=== PATIENT | male | born 1945 | race Caucasian/White ===

== ENCOUNTER → 2016-07-08 | Outpatient (CLI) | payer MEDICARE ==
[2016-07-08 10:13] LABS: Basophils % (A) 0 %; CH 33.4; CHCM 33.6; Eosinophils # (A) 0.1 k/uL (0-0.7); Eosinophils % (A) 1 %; HCT 43.6 % (39.0-53.0); HDW 2.28; HGB 14.3 gm/dL (13.0-17.5); Luc % (Auto) 2; Lymphocytes % (A) 14 %; MCH 32.6 pg (25.0-35.0); MCHC 32.7 g/dL (31.0-37.0); MCV 99.7 fL (80.0-100.0); Mean Platelet Volume 7.8; Monocytes # (A) 0.4 k/uL (0-1.0); Monocytes % (A) 6 %; Neutrophils # (A) 5.2 k/uL (1.3-7.7); Neutrophils % (A) 77 %; RBC 4.38 m/uL (4.30-5.90); RDW 12.5 % (11.5-15.5); WBC 6.7 k/uL (3.8-10.6); WBC (Perox) 6.97
[2016-07-08 10:51] LABS: ALT 39 U/L (21-72); AST 26 U/L (17-59); Alkaline Phosphatase 95 U/L (38-126); Anion Gap 9 mmol/L; Blood Urea Nitrogen 19 mg/dL (9-20); Calcium 9.5 mg/dL (8.4-10.2); Carbon Dioxide 30 mmol/L (22-30); Chloride 105 mmol/L (98-107); Cholesterol 143 mg/dL (<200); Glucose 100 mg/dL (74-99); HDL Cholesterol 65 mg/dL (40-60); Non-African American GFR(MDRD) >60 (>60 ml/min/1.73 sqM); Potassium 4.7 mmol/L (3.5-5.1); Sodium 144 mmol/L (137-145); Total Bilirubin 0.5 mg/dL (0.2-1.3); Total Protein 7.3 g/dL (6.3-8.2); Triglycerides 133 mg/dL (<150)
== END | disposition home or self-care (01) ==
LOC: LABWHC1 09:11
PROVIDERS: ATTEND Internal Medicine
DX: E78.5 Hyperlipidemia, unspecified (principal); I10 Essential (primary) hypertension; G40.909 Epilepsy, unspecified, not intractable, without status epilepticus
CPT/HCPCS: 36415; 80053; 80061; 80185; 84439; 84443; 85025; 99213

== ENCOUNTER 2017-01-30 09:30 | Day surgery (SDC) | payer MEDICARE ==
[2017-01-28 11:29] VITALS: BMI 31.4
[~2017-01-30 09:30] MED LIST: LACTATED RINGERS 1,000 ML IV SCH; LIDOCAINE 1% 20 ML VIAL (10MG/ML) FOR IV START INTRADERMA PRN
[2017-01-30 10:23] VITALS: RESP 16; TEMP 97.5
[2017-01-30] MEDS ORDERED: PROPOFOL 10 MG/ML 20 ML VIAL IV ONE (10:50)
[2017-01-30] MEDS ORDERED: LIDOCAINE 1% INJ 10MG/ML (20 ML MDV) ONE (10:50)
--- NOTE | 2017-01-30 11:32 | P.PCN ---
Date of Procedure: 01/30/17 Preoperative Diagnosis: Postoperative Diagnosis: Procedure(s) Performed: Procedure: Colonoscopy and polypectomy. Preoperative diagnosis: Screening for neoplasia, patient has history of polyps. Postoperative diagnosis: Multiple small polyps snared but no large polyps or cancer. Sigmoid diverticulosis with no evidence of acute diverticulitis or strictures. Preparation: HalfLytely prep. Sedation: Was provided by anesthesia. Brief clinical history: The patient is a 71-year-old male who is scheduled for this evaluation for screening for neoplasia because of history of polyps. His last exam was around 5 years ago. He has no abdominal complaints, bleeding or anemia. Procedure: With the patient on his left lateral decubitus position and after informed consent and adequate sedation, the perianal area did not show any fissures or fistulas. There were no masses felt on digital rectal examination. The Olympus CFQ 160L video colonoscope was then inserted in the rectum in the usual fashion and advanced to the cecum. The mucosa appeared healthy. There was multiple diverticular orifices seen scattered in the sigmoid with no evidence of acute diverticulitis or strictures. In the cecum there was a small polyp which was snared and there were 3 small polyps around the hepatic flexure which were snared as well, but there was no large polyps or cancer. I retroflexed the endoscope in the rectum before the endoscope was withdrawn. The patient tolerated the procedure well. Plan: The patient was reassured and I discussed with his brother. Discussed dietary measures. I am recommending repeat exam in 5 years. He will follow up with you as planned. Implants: Indications for Procedure: Operative Findings: Description of Procedure:
[2017-01-30 11:35] VITALS: BP 151/73; PULSE 58
== END 2017-01-30 12:07 | disposition home or self-care (01) ==
LOC: ORWHC2ENDO 09:30
DX: Z12.11 Encounter for screening for malignant neoplasm of colon (principal); D12.3 Benign neoplasm of transverse colon; D12.0 Benign neoplasm of cecum; K57.30 Diverticulosis of large intestine without perforation or abscess without bleeding; Z86.010 Personal history of colon polyps; I10 Essential (primary) hypertension; E78.5 Hyperlipidemia, unspecified; Z79.899 Other long term (current) drug therapy; Z88.1 Allergy status to other antibiotic agents
CPT/HCPCS: 88305; 45385; J2001; J2704

== ENCOUNTER → 2018-06-11 | Outpatient (CLI) | payer MEDICARE ==
[2018-06-11 15:03] LABS: Basophils % (A) 0 %; Eosinophils % (A) 1 %; HCT 37.8 % (39.0-53.0); HGB 12.4 gm/dL (13.0-17.5); Lymphocytes % (A) 13 %; MCH 31.7 pg (25.0-35.0); MCHC 32.8 g/dL (31.0-37.0); MCV 96.6 fL (80.0-100.0); Mean Platelet Volume 6.7; Monocytes # (A) 0.6 k/uL (0-1.0); Monocytes % (A) 8 %; Neutrophils # (A) 5.9 k/uL (1.3-7.7); Neutrophils % (A) 76 %; Platelet Count 260 k/uL (150-450); RBC 3.92 m/uL (4.30-5.90); RDW 12.3 % (11.5-15.5); WBC 7.8 k/uL (3.8-10.6)
[2018-06-11 16:52] LABS: Erythrocyte Sedimentation Rate 58 mm/hr (0-15)
[2018-06-11 19:32] LABS: Phenytoin (Dilantin) 2.9 ug/mL (10.0-20.0)
[2018-06-11 20:22] LABS: Albumin 4.5 g/dL (3.80-4.90); Albumin/Globulin Ratio 2.81 (1.20-2.10); Anion Gap 12.1 mmol/L (4.00-12.00); Calcium 8.8 mg/dL (8.7-10.3); Carbon Dioxide 23.9 mmol/L (21.6-31.8); Globulin 1.6 g/dL (1.6-3.3); Magnesium 2.1 mg/dL (1.5-2.4); Potassium 4.2 mmol/L (3.5-5.5); Total Bilirubin 0.4 mg/dL (0.3-1.2); Total Protein 6.1 g/dL (6.2-8.2)
[2018-06-11 20:31] LABS: T4, Free (Free Thyroxine) 1.4 ng/dL (0.80-1.80)
== END | disposition home or self-care (01) ==
LOC: LABWHC1 13:38
PROVIDERS: ATTEND Internal Medicine
DX: R63.4 Abnormal weight loss (principal); R53.1 Weakness
CPT/HCPCS: 84439; 80053; 85652; 82533; 82607; 82085; 82550; 80185; 83735; 84443; 85025; 86038; 36415; G0103

== ENCOUNTER 2018-06-30 10:41 | Inpatient (IN) | payer MEDICARE ==
[2018-06-30] MEDS ORDERED: SODIUM CHLORIDE 0.9% 1,000 ML IV STA (11:14)
--- NOTE | 2018-06-30 11:18 | ED ---
Weakness HPI - General Chief complaint: Weakness Stated complaint: Weakness in legs Time Seen by Provider: 06/30/18 11:02 Source: patient, EMS, RN notes reviewed, old records reviewed Mode of arrival: EMS Limitations: no limitations - History of Present Illness Initial comments: Patient is a 72-year-old male history of cerebral palsy affecting the right side presents emergency Department today with complaints of generalized weakness. He states is been progressive over the past 2 weeks. He also states he felt up with his PCP and set at a late weight loss over the past few months. Patient's had a poor appetite. He states that he had no food in the house. He complains today of generalized lower extremity swelling and weakness. Patient states that he has had no fevers or chills or abdominal pain. He states that he did have some dyspnea on exertion with getting up in the mornings. Patient states he was seen by his PCP and recently increased his Lasix. Patient states that he notices that his left leg is significantly more swollen than his right. Denies any history of blood clots. - Related Data Home Medications Medication Instructions Recorded Confirmed Doxazosin Mesylate 8 mg PO HS 01/28/17 06/30/18 Furosemide [Lasix] 20 mg PO DAILY 01/28/17 06/30/18 Losartan Potassium 100 mg PO HS 01/28/17 06/30/18 Phenytoin Sodium Extended 100 mg PO TID 01/28/17 06/30/18 [Dilantin] amLODIPine [Norvasc] 10 mg PO HS 01/28/17 06/30/18 traZODone HCL [Desyrel] 100 mg PO HS 01/28/17 06/30/18 Allergies Allergy/AdvReac Type Severity Reaction Status Date / Time Tetracyclines Allergy Rash/Hives Verified 06/30/18 11:19 Review of Systems ROS Statement: Those systems with pertinent positive or pertinent negative responses have been documented in the HPI. ROS Other: All systems not noted in ROS Statement are negative. Past Medical History Past Medical History: Hyperlipidemia, Hypertension, Prostate Disorder, Seizure Disorder Additional Past Medical History / Comment(s): LAST SEIZURE AT AGE 16 History of Any Multi-Drug Resistant Organisms: None Reported Past Surgical History: Hernia Repair, Tonsillectomy Additional Past Surgical History / Comment(s): JUNIOR FUNDLOPLASTY-2013. EGD. COLONOSCOPY. REPAIR INDEX FINGER RT HAND Past Anesthesia/Blood Transfusion Reactions: No Reported Reaction Past Psychological History: No Psychological Hx Reported, Anxiety Smoking Status: Never smoker Past Alcohol Use History: None Reported Past Drug Use History: None Reported - Past Family History Mother Family Medical History: No Reported History General Exam - General Exam Comments Initial Comments: this is a 72-year-old male. Alert and oriented. Patient appears in no significant distress. Limitations: no limitations General appearance: alert, in no apparent distress Head exam: Present: atraumatic, normocephalic, normal inspection Eye exam: Present: normal appearance, PERRL, EOMI. Absent: scleral icterus, conjunctival injection, periorbital swelling ENT exam: Present: normal exam, mucous membranes moist Neck exam: Present: normal inspection. Absent: tenderness, meningismus, lymphadenopathy Respiratory exam: Present: normal lung sounds bilaterally. Absent: respiratory distress, wheezes, rales, rhonchi, stridor Cardiovascular Exam: Present: regular rate, normal rhythm, normal heart sounds. Absent: systolic murmur, diastolic murmur, rubs, gallop, clicks GI/Abdominal exam: Present: soft Extremities exam: Present: normal inspection, full ROM, normal capillary refill , pedal edema (Patient has a left lower shoulder may 4+ pitting edema. He states is always low slightly larger than the right. Normal pulses bilaterally. ), other (bilateral 4+ pitting edema. Left lower extremity is significantly more swollen than the right.). Absent: tenderness, joint swelling, calf tenderness Back exam: Present: normal inspection Neurological exam: Present: alert, oriented X3, CN II-XII intact Psychiatric exam: Present: normal affect, normal mood Skin exam: Present: warm, dry, intact, normal color. Absent: rash Course Vital Signs 06/30/18 10:59 Temperature 96.7 F L Pulse Rate 79 Respiratory 18 Rate Blood Pressure 133/63 O2 Sat by Pulse 99 Oximetry Medical Decision Making - Medical Decision Making 72-year-old male presents emergency Department today with complaints of bilateral lower extremity weakness swelling. Patient has history of cervical palsy. He has full range of motion normal strength in all extremities. No signs of acute neurological deficits. He does report that his right leg is chronically smaller than his left leg due to the history of triple palsy. states he also has history of heart failure. Patient appears unkempt. At this time Patient was started on IV fluids at a very low rate 20 mL's per hour. Lab work was obtained. Troponin and EKG are unremarkable. Chest x-ray is negative for pleural effusion. Ultrasound of bilateral lower extremities are negative for DVT. Patient states he is uncomfortable with discharging home. His PCP is Dr. Guerrier. Patient may need to have more social resources to his house to help with his care. I discusses Dr. Shepherd who also examined the Patient. Patient will be admitted at this time under [facility]. Consult to Dr. Lewis, patient's PCP. - Lab Data Result diagrams: 06/30/18 12:07 06/30/18 12:07 Lab Results 06/30/18 06/30/18 06/30/18 Range/Units 12:07 12:07 12:07 WBC 8.9 (3.8-10.6) k/uL RBC 3.71 L (4.30-5.90) m/uL Hgb 11.8 L (13.0-17.5) gm/dL Hct 34.5 L (39.0-53.0) % MCV 93.0 (80.0-100.0) fL MCH 31.9 (25.0-35.0) pg MCHC 34.3 (31.0-37.0) g/dL RDW 12.0 (11.5-15.5) % Plt Count 310 (150-450) k/uL Neutrophils % 78 % Lymphocytes % 12 % Monocytes % 8 % Eosinophils % 1 % Basophils % 0 % Neutrophils # 6.9 (1.3-7.7) k/uL Lymphocytes # 1.1 (1.0-4.8) k/uL Monocytes # 0.7 (0-1.0) k/uL Eosinophils # 0.1 (0-0.7) k/uL Basophils # 0.0 (0-0.2) k/uL PT (9.0-12.0) sec INR (<1.2) APTT (22.0-30.0) sec Sodium 138 (137-145) mmol/L Potassium 4.0 (3.5-5.1) mmol/L Chloride 107 (98-107) mmol/L Carbon Dioxide 22 (22-30) mmol/L Anion Gap 9 mmol/L BUN 20 (9-20) mg/dL Creatinine 0.78 (0.66-1.25) mg/dL Est GFR (CKD-EPI)AfAm >90 (>60 ml/min/1.73 sqM) Est GFR (CKD-EPI)NonAf >90 (>60 ml/min/1.73 sqM) Glucose 103 H (74-99) mg/dL Calcium 9.0 (8.4-10.2) mg/dL Magnesium 2.2 (1.6-2.3) mg/dL Total Bilirubin 0.7 (0.2-1.3) mg/dL AST 51 (17-59) U/L ALT 90 H (21-72) U/L Alkaline Phosphatase 93 (38-126) U/L Total Creatine Kinase 154 (55-170) U/L CK-MB (CK-2) 2.5 H (0.0-2.4) ng/mL CK-MB (CK-2) Rel Index 1.6 Troponin I <0.012 (0.000-0.034) ng/mL NT-Pro-B Natriuret Pep pg/mL Total Protein 6.1 L (6.3-8.2) g/dL Albumin 3.4 L (3.5-5.0) g/dL 06/30/18 06/30/18 Range/Units 12:07 12:07 WBC (3.8-10.6) k/uL RBC (4.30-5.90) m/uL Hgb (13.0-17.5) gm/dL Hct (39.0-53.0) % MCV (80.0-100.0) fL MCH (25.0-35.0) pg MCHC (31.0-37.0) g/dL RDW (11.5-15.5) % Plt Count (150-450) k/uL Neutrophils % % Lymphocytes % % Monocytes % % Eosinophils % % Basophils % % Neutrophils # (1.3-7.7) k/uL Lymphocytes # (1.0-4.8) k/uL Monocytes # (0-1.0) k/uL Eosinophils # (0-0.7) k/uL Basophils # (0-0.2) k/uL PT 10.3 (9.0-12.0) sec INR 1.0 (<1.2) APTT 25.7 (22.0-30.0) sec Sodium (137-145) mmol/L Potassium (3.5-5.1) mmol/L Chloride (98-107) mmol/L Carbon Dioxide (22-30) mmol/L Anion Gap mmol/L BUN (9-20) mg/dL Creatinine (0.66-1.25) mg/dL Est GFR (CKD-EPI)AfAm (>60 ml/min/1.73 sqM) Est GFR (CKD-EPI)NonAf (>60 ml/min/1.73 sqM) Glucose (74-99) mg/dL Calcium (8.4-10.2) mg/dL Magnesium (1.6-2.3) mg/dL Total Bilirubin (0.2-1.3) mg/dL AST (17-59) U/L ALT (21-72) U/L Alkaline Phosphatase (38-126) U/L Total Creatine Kinase (55-170) U/L CK-MB (CK-2) (0.0-2.4) ng/mL CK-MB (CK-2) Rel Index Troponin I (0.000-0.034) ng/mL NT-Pro-B Natriuret Pep 919 pg/mL Total Protein (6.3-8.2) g/dL Albumin (3.5-5.0) g/dL 06/30/18 13:27 EKG performed at 1207 shows sinus rhythm with first AV block. Right bundle- branch block. Left anterior fascicular block. Ventricular block. Abnormal EKG noted. Ventricular rate 74 bpm. Pulse 236. Stressors and 140. QT QTc is 454/503 ms. - Radiology Data Radiology results: report reviewed Ultrasound is negative for DVT.No evidence of acute pulmonary disease on chest x -ray. Disposition Clinical Impression: Bilateral edema of lower extremity, Weakness, History of cerebral palsy Disposition: ADMITTED IP TO THIS HOSP Condition: Stable Is patient prescribed a controlled substance at d/c from ED?: No Referrals: Jamie Lewis MD [Primary Care Provider] - 1-2 days Time of Disposition: 15:11
--- NOTE | 2018-06-30 12:47 | XR ---
EXAMINATION TYPE: XR chest 2V DATE OF EXAM: 06/30/2018 COMPARISON: 12/16/2012 HISTORY: Shortness of breath TECHNIQUE: Frontal and lateral views of the chest are obtained. FINDINGS: Scattered senescent parenchymal changes noted. Hyperinflation compatible with COPD. No evidence for infiltrate. No evidence for atelectasis. There is evidence of cardiomegaly. Mediastinal structures are stable and grossly unremarkable. No evidence for hilar prominence. Degenerative changes dorsal spine. IMPRESSION: 1. No evidence for acute pulmonary disease.
[2018-06-30 12:49] LABS: ALT 90 U/L (21-72); AST 51 U/L (17-59); Albumin 3.4 g/dL (3.5-5.0); Alkaline Phosphatase 93 U/L (38-126); Anion Gap 9 mmol/L; Blood Urea Nitrogen 20 mg/dL (9-20); Carbon Dioxide 22 mmol/L (22-30); Chloride 107 mmol/L (98-107); Glucose 103 mg/dL (74-99); Magnesium 2.2 mg/dL (1.6-2.3); Sodium 138 mmol/L (137-145); Total Bilirubin 0.7 mg/dL (0.2-1.3); Total Protein 6.1 g/dL (6.3-8.2)
[2018-06-30 12:50] LABS: Partial Thromboplastin Time 25.7 sec (22.0-30.0); Prothrombin Time 10.3 sec (9.0-12.0)
[2018-06-30 12:52] LABS: Basophils % (A) 0 %; Eosinophils # (A) 0.1 k/uL (0-0.7); Eosinophils % (A) 1 %; HCT 34.5 % (39.0-53.0); HGB 11.8 gm/dL (13.0-17.5); Lymphocytes # (A) 1.1 k/uL (1.0-4.8); Lymphocytes % (A) 12 %; MCH 31.9 pg (25.0-35.0); MCHC 34.3 g/dL (31.0-37.0); Mean Platelet Volume 6.7; Monocytes # (A) 0.7 k/uL (0-1.0); Monocytes % (A) 8 %; Neutrophils # (A) 6.9 k/uL (1.3-7.7); Neutrophils % (A) 78 %; Platelet Count 310 k/uL (150-450); RBC 3.71 m/uL (4.30-5.90); WBC 8.9 k/uL (3.8-10.6)
[2018-06-30 13:02] LABS: Creatine Kinase 154 U/L (55-170)
[2018-06-30 13:15] LABS: Creatine Kinase MB 2.5 ng/mL (0.0-2.4); Troponin I <0.012 ng/mL (0.000-0.034)
--- NOTE | 2018-06-30 13:57 | US ---
EXAMINATION TYPE: US venous doppler duplex LE BI DATE OF EXAM: 06/30/2018 1:33 PM COMPARISON: NONE CLINICAL HISTORY: Pain. left leg swelling, patient states that leg is always larger then right, pt dong s cerebral palsy that affects the right leg, no h/o dvt SIDE PERFORMED: bilateral TECHNIQUE: The lower extremity deep venous system is examined utilizing real time linear array sonog zofia with graded compression, doppler sonography and color-flow sonography. VESSELS IMAGED: External Iliac Vein (EIV) Common Femoral Vein Deep Femoral Vein Greater Saphenous Vein * Femoral Vein Popliteal Vein Small Saphenous Vein * Proximal Calf Veins (* superficial vessels) There is normal flow, compressibility, vascular waveforms. Right Leg: Appears negative for DVT Left Leg: Appears negative for DVT IMPRESSION: No evident deep venous thrombosis at or above the knees. Follow-up as indicated.
[2018-06-30] MEDS ORDERED: FUROSEMIDE 10 MG/ML 4 ML VIAL IV STA (14:58)
[2018-06-30] MEDS ORDERED: oxyCODONE-APAP 5-325MG 1 EACH TAB PO PRN (15:11)
[2018-06-30] MEDS ORDERED: NALOXONE 0.4 MG/ML 1 ML VIAL IV PRN (15:11)
[2018-06-30] MEDS ORDERED: TEMAZEPAM 15 MG CAP PO PRN (15:11)
[2018-06-30] MEDS: SODIUM CHLORIDE 0.9% 1,000 ML IV SCH (15:54)
[2018-06-30 16:28] LABS: Appearance,Urine Clear (Clear); Bilirubin,Urine Negative (Negative); Blood,Urine Negative (Negative); Color,Urine Yellow; Glucose,Urine (UA) Negative (Negative); Ketones,Urine Negative (Negative); Leukocyte Esterase,Urine Negative (Negative); Nitrite,Urine Negative (Negative); Protein,Urine Trace (Negative); Specific Gravity,Urine 1.019 (1.001-1.035)
--- NOTE | 2018-06-30 17:46 | P.HPIM ---
History of Present Illness 72-year-old pleasant gentleman with history of cerebral palsy who takes care of himself at home, came in with complaints of of progressive weakness and able to stand and unable to take care of himself at home. Patient denied any fever chills patient denied any focal weakness patient has significant generalized weakness patient even has muscle B in both legs. Patient denied any back pain headache patient denied any tingling numbness which is new patient denied any fever chills dysuria shouldn't denied any cough or denied any diarrhea urine analysis chest x-ray no significant abnormality patient is taking Lasix dose of which is recently increased because of increased leg swelling and he had increased swelling in the more than right for which patient had a Doppler of bilateral extremity which did not show any DVT. This weakness has been progressing for few weeks and wanted to be placed wanted to go to subacute rehabilitation. Review of Systems REVIEW OF SYSTEMS: CONSTITUTIONAL: As mentioned in HPI HEENT: No recent visual problems or hearing problems. Denied any sore throat. CARDIOVASCULAR: No chest pain, orthopnea, PND, no palpitations, no syncope. PULMONARY: No shortness of breath, no cough, no hemoptysis. GASTROINTESTINAL: No diarrhea, no nausea, no vomiting, no abdominal pain. NEUROLOGICAL: No headaches, no weakness, no numbness. HEMATOLOGICAL: Denies any bleeding or petechiae. GENITOURINARY: Denies any burning micturition, frequency, or urgency. MUSCULOSKELETAL/RHEUMATOLOGICAL: Denies any joint pain, swelling, or any muscle pain. ENDOCRINE: Denies any polyuria or polydipsia. The rest of the 14-point review of systems is negative. Past Medical History Past Medical History: Hyperlipidemia, Hypertension, Prostate Disorder, Seizure Disorder Additional Past Medical History / Comment(s): LAST SEIZURE AT AGE 16 History of Any Multi-Drug Resistant Organisms: None Reported Past Surgical History: Hernia Repair, Tonsillectomy Additional Past Surgical History / Comment(s): JUNIOR FUNDLOPLASTY-2013. EGD. COLONOSCOPY. REPAIR INDEX FINGER RT HAND Past Anesthesia/Blood Transfusion Reactions: No Reported Reaction Past Psychological History: Anxiety Smoking Status: Never smoker Past Alcohol Use History: None Reported Past Drug Use History: None Reported - Past Family History Mother Family Medical History: No Reported History Medications and Allergies Home Medications Medication Instructions Recorded Confirmed Type Doxazosin Mesylate 8 mg PO HS 01/28/17 06/30/18 History Furosemide [Lasix] 20 mg PO DAILY 01/28/17 06/30/18 History Losartan Potassium 100 mg PO HS 01/28/17 06/30/18 History Phenytoin Sodium Extended 100 mg PO TID 01/28/17 06/30/18 History [Dilantin] amLODIPine [Norvasc] 10 mg PO HS 01/28/17 06/30/18 History traZODone HCL [Desyrel] 100 mg PO HS 01/28/17 06/30/18 History Allergies Allergy/AdvReac Type Severity Reaction Status Date / Time Tetracyclines Allergy Rash/Hives Verified 06/30/18 11:19 Physical Exam Vitals: Vital Signs Temp Pulse Resp BP Pulse Ox 06/30/18 16:00 73 17 147/94 99 06/30/18 15:30 72 15 132/67 98 06/30/18 15:00 75 18 06/30/18 14:30 72 20 06/30/18 14:00 73 18 145/62 06/30/18 13:00 76 20 100 06/30/18 12:30 126/91 06/30/18 11:30 133/63 100 06/30/18 10:59 96.7 F L 79 18 133/63 99 Intake and Output 06/30/18 06/30/18 06/30/18 06:59 14:59 22:59 Output Total 450 Balance -450 Output: Urine 150 Stool 300 Other: Weight 92.079 kg PHYSICAL EXAMINATION: GENERAL: The patient is alert and oriented x3, not in any acute distress. Well developed, well nourished. HEENT: Pupils are round and equally reacting to light. EOMI. No scleral icterus. No conjunctival pallor. Normocephalic, atraumatic. No pharyngeal erythema. No thyromegaly. CARDIOVASCULAR: S1 and S2 present. No murmurs, rubs, or gallops. PULMONARY: Chest is clear to auscultation, no wheezing or crackles. ABDOMEN: Soft, nontender, nondistended, normoactive bowel sounds. No palpable organomegaly. MUSCULOSKELETAL: No joint swelling or deformity. EXTREMITIES: No cyanosis, clubbing, or pedal edema. NEUROLOGICAL: Does have significant generalized weakness multiple deformities in toes of both feet does have atrophy of both leg muscles no focal weakness was appreciated SKIN: No rashes. Results CBC & Chem 7: 06/30/18 12:07 06/30/18 12:07 Labs: Abnormal Lab Results - Last 24 Hours (Table) 06/30/18 06/30/18 06/30/18 Range/Units 12:07 12:07 12:07 RBC 3.71 L (4.30-5.90) m/uL Hgb 11.8 L (13.0-17.5) gm/dL Hct 34.5 L (39.0-53.0) % Glucose 103 H (74-99) mg/dL ALT 90 H (21-72) U/L CK-MB (CK-2) 2.5 H (0.0-2.4) ng/mL Total Protein 6.1 L (6.3-8.2) g/dL Albumin 3.4 L (3.5-5.0) g/dL Urine Protein (Negative) 06/30/18 Range/Units 16:09 RBC (4.30-5.90) m/uL Hgb (13.0-17.5) gm/dL Hct (39.0-53.0) % Glucose (74-99) mg/dL ALT (21-72) U/L CK-MB (CK-2) (0.0-2.4) ng/mL Total Protein (6.3-8.2) g/dL Albumin (3.5-5.0) g/dL Urine Protein Trace H (Negative) Thrombosis Risk Factor Assmnt - Choose All That Apply Each Factor Represents 1 point: Swollen legs (current) Each Risk Factor Represents 2 Points: Age 61-74 years Thrombosis Risk Factor Assessment Total Risk Factor Score: 3 Thrombosis Risk Factor Assessment Level: Moderate Risk Assessment and Plan Plan: -Generalized deconditioning: Etiology is not clear physical therapy and occupational therapy will evaluate the patient patient is not physically strong enough to stay home by himself will need placement to subacute rehabilitation. -Hyperlipidemia: Resume statin -Hypertension -Seizure disorder -Benign prostatic hypertrophy -Cerebral palsy history, supportive care -Multiple deformities of toes of both legs with some some pressure ulcerations on the toes which will need local wound care physical therapy these deformities or leading to his decreased functionality thereby overall generalized deconditioning, muscle atrophy
[2018-06-30] MEDS: DOXAZOSIN 4 MG TAB PO SCH (20:26)
[2018-06-30] MEDS: amLODIPine 10 MG TAB PO SCH (20:26)
[2018-06-30] MEDS: LOSARTAN 50 MG TAB PO SCH (20:27)
[2018-06-30] MEDS: traZODone HCL 100 MG TAB PO SCH (20:27)
[2018-06-30] MEDS: PHENYTOIN SODIUM EXTENDED 100 MG CAP PO SCH ×2 (20:27→22:11)
[2018-07-01] MEDS: PHENYTOIN SODIUM EXTENDED 100 MG CAP PO SCH ×3 (07:58→21:08)
[2018-07-01] MEDS: SODIUM CHLORIDE 0.9% 1,000 ML IV SCH (07:59)
[2018-07-01] MEDS ORDERED: PANTOPRAZOLE 40 MG/10 ML VIAL IV SCH (09:00)
[2018-07-01 11:13] VITALS: BMI 29.1
--- NOTE | 2018-07-01 15:04 | P.PN ---
Subjective 72-year-old pleasant gentleman with history of cerebral palsy who takes care of himself at home, came in with complaints of of progressive weakness and able to stand and unable to take care of himself at home. Patient denied any fever chills patient denied any focal weakness patient has significant generalized weakness patient even has muscle B in both legs. Patient denied any back pain headache patient denied any tingling numbness which is new patient denied any fever chills dysuria shouldn't denied any cough or denied any diarrhea urine analysis chest x-ray no significant abnormality patient is taking Lasix dose of which is recently increased because of increased leg swelling and he had increased swelling in the more than right for which patient had a Doppler of bilateral extremity which did not show any DVT. This weakness has been progressing for few weeks and wanted to be placed wanted to go to subacute rehabilitation. 07/01/2018 No overnight events patient is requiring 2 person assist I'll obtain a MRI of the lumbar spine. My suspicion is low for ascending radiculopathy Constitutional: Denied any fatigue denied any fever. Cardio vascular: denied any chest pain, palpitations Gastrointestinal denied any nausea vomiting Pulmonary: Denied any shortness of breath cough Neurologic denied any new focal deficits All inpatient medications were reviewed and appropriate changes in these medications as dictated in the interval history and assessment and plan. Objective - Vital Signs Vital signs: Vital Signs Temp 98.1 F 07/01/18 14:12 Pulse 75 07/01/18 14:12 Resp 16 07/01/18 14:12 BP 113/70 07/01/18 14:12 Pulse Ox 98 07/01/18 14:12 Intake & Output 06/30/18 07/01/18 07/01/18 18:59 06:59 18:59 Intake Total 650 Output Total 450 300 Balance -450 350 Weight 92.079 kg 92.079 kg Intake: Oral 650 Output: Urine 150 Stool 300 300 Other: Voiding Method Urinal Urinal Incontinent Incontinent # Voids 2 1 # Bowel Movements 1 - Exam PHYSICAL EXAMINATION: GENERAL: The patient is alert and oriented x3, not in any acute distress. Well developed, well nourished. HEENT: Pupils are round and equally reacting to light. EOMI. No scleral icterus. No conjunctival pallor. Normocephalic, atraumatic. No pharyngeal erythema. No thyromegaly. CARDIOVASCULAR: S1 and S2 present. No murmurs, rubs, or gallops. PULMONARY: Chest is clear to auscultation, no wheezing or crackles. ABDOMEN: Soft, nontender, nondistended, normoactive bowel sounds. No palpable organomegaly. MUSCULOSKELETAL: No joint swelling or deformity. EXTREMITIES: No cyanosis, clubbing, or pedal edema. NEUROLOGICAL: Does have significant generalized weakness multiple deformities in toes of both feet does have atrophy of both leg muscles no focal weakness was appreciated SKIN: No rashes. - Labs CBC & Chem 7: 06/30/18 12:07 06/30/18 12:07 Labs: Abnormal Lab Results - Last 24 Hours (Table) 06/30/18 Range/Units 16:09 Urine Protein Trace H (Negative) Assessment and Plan Plan: -Generalized deconditioning: Etiology is not clear physical therapy and occupational therapy will evaluate the patient patient is not physically strong enough to stay home by himself will need placement to subacute rehabilitation. I'll also obtain lumbar spine MRI to assess because of her significant lower limb weakness -Hyperlipidemia: Resume statin -Hypertension -Seizure disorder -Benign prostatic hypertrophy -Cerebral palsy history, supportive care -Multiple deformities of toes of both legs with some some pressure ulcerations on the toes which will need local wound care physical therapy these deformities or leading to his decreased functionality thereby overall generalized deconditioning, muscle atrophy
--- NOTE | 2018-07-01 17:31 | P.CNPUL ---
History of Present Illness Consult date: 07/01/18 Requesting physician: Huseyin Joyce Reason for consult: other Chief complaint: Weakness, left lower leg swelling, weight loss History of present illness: This is a 72-year-old white male patient of Dr. Art, with past medical history of cerebral palsy, seizure disorder, hypertension, hyperlipidemia, prostate disorder, who resented to the hospital per EMS on 06/30/2018 with complaints of progressive generalized weakness. Patient had seen his PCP Dr. Art in the office on 06/11/2018, with complaints of leg weakness, generalized weakness, weight loss, patient lost 17 pounds in the last couple months, and the reasons had to do with some decrease in appetite and patient was too weak to go shopping for groceries and prepare food. Patient's neighbor did go shopping for him a few days ago provided him with some groceries. She denied any fever or chills, no shortness of breath or chest pain, no cough or chest congestion, no hemoptysis, no pleuritic chest pain or chest wall tenderness. No nausea or vomiting, or diarrhea. No abdominal pain. No obvious signs of bleeding. Patient was seen by Dr. Art, and referred to Dr. Hinkle for neurologic evaluation. Workup was initiated, patient was supposed to have a CT of the chest, abdomen and pelvis, as well as some blood work, muscle enzymes CPK, sed rate, DHEERAJ, TSH, and serum cortisol. Patient has an upcoming appointment with Dr. Pang in the office on July 06. However yesterday patient was experiencing increasing weakness, was having difficulty getting out of bed, and it to an hour and a half just to get himself dressed. Patient decided to call 911 and was brought into the hospital for evaluation. Patient' s left leg was significantly more swollen than his right leg, denies any history of DVTs, lower extremity Doppler was negative for DVT. Patient had no signs of acute neurological deficits, but was generally weak. Chest x-ray was taken and showed no evidence for acute pulmonary disease. EKG showed sinus rhythm with first-degree AV block. Lab work showed a white blood cell count of 8.9, hemoglobin of 11.8, coagulation profile was within normal limits, renal profile, electrolytes were within normal limits, proBNP was 919, troponin was negative 1, total CK was within normal limits at 154, CK-MB was 2.5, albumin was 3.4, urinalysis showed trace protein, but negative for infection. Patient is afebrile, room air pulse ox is 98%, hemodynamically patient is stable, lung sounds are diminished, no rhonchi or wheezes. Review of Systems All systems: negative Constitutional: Reports weakness, Reports weight loss, Denies chills, Denies fever Eyes: denies blurred vision, denies pain Ears, nose, mouth and throat: Denies headache, Denies sore throat Cardiovascular: Denies chest pain, Denies shortness of breath Respiratory: Denies cough Gastrointestinal: Denies abdominal pain, Denies diarrhea, Denies nausea, Denies vomiting Musculoskeletal: Reports muscle cramps, Reports muscle weakness, Denies myalgias Integumentary: Denies pruritus, Denies rash Neurological: Denies numbness, Denies weakness Psychiatric: Denies anxiety, Denies depression Endocrine: Denies fatigue, Denies weight change Past Medical History Past Medical History: Hyperlipidemia, Hypertension, Prostate Disorder, Seizure Disorder Additional Past Medical History / Comment(s): LAST SEIZURE AT AGE 16 History of Any Multi-Drug Resistant Organisms: None Reported Past Surgical History: Hernia Repair, Tonsillectomy Additional Past Surgical History / Comment(s): JUNIOR FUNDLOPLASTY-2013. EGD. COLONOSCOPY. REPAIR INDEX FINGER RT HAND Past Anesthesia/Blood Transfusion Reactions: No Reported Reaction Past Psychological History: Anxiety Smoking Status: Never smoker Past Alcohol Use History: None Reported Past Drug Use History: None Reported - Past Family History Mother Family Medical History: No Reported History Medications and Allergies Home Medications Medication Instructions Recorded Confirmed Type Doxazosin Mesylate 8 mg PO HS 01/28/17 06/30/18 History Furosemide [Lasix] 20 mg PO DAILY 01/28/17 06/30/18 History Losartan Potassium 100 mg PO HS 01/28/17 06/30/18 History Phenytoin Sodium Extended 100 mg PO TID 01/28/17 06/30/18 History [Dilantin] amLODIPine [Norvasc] 10 mg PO HS 01/28/17 06/30/18 History traZODone HCL [Desyrel] 100 mg PO HS 01/28/17 06/30/18 History Allergies Allergy/AdvReac Type Severity Reaction Status Date / Time Tetracyclines Allergy Rash/Hives Verified 06/30/18 11:19 Physical Exam Vitals: Vital Signs Temp Pulse Pulse Resp BP BP Pulse Ox 07/01/18 06:00 97.4 F L 81 20 127/72 100 06/30/18 23:00 98.1 F 82 20 95/57 96 06/30/18 21:09 17 06/30/18 16:00 73 17 147/94 99 06/30/18 15:30 72 15 132/67 98 06/30/18 15:00 75 18 06/30/18 14:30 72 20 06/30/18 14:00 73 18 145/62 Intake and Output 06/30/18 07/01/18 07/01/18 22:59 06:59 14:59 Intake Total 450 200 Output Total 750 Balance -300 200 Intake: Oral 450 200 Output: Urine 150 Stool 600 Other: Voiding Method Urinal Urinal Incontinent Incontinent # Voids 1 2 1 # Bowel Movements 1 Weight 92.079 kg GENERAL EXAM: Alert, pleasant, 72-year-old white male, comfortable in no apparent distress. HEAD: Normocephalic/atraumatic. EYES: Normal reaction of pupils, equal size. Conjunctiva pink, sclera white. NOSE: Clear with pink turbinates. THROAT: No erythema or exudates. NECK: No masses, no JVD, no thyroid enlargement, no adenopathy. CHEST: No chest wall deformity. Symmetrical expansion. LUNGS: Equal air entry with no crackles, wheeze, rhonchi or dullness. CVS: Regular rate and rhythm, normal S1 and S2, no gallops, no murmurs, no rubs ABDOMEN: Soft, nontender. No hepatosplenomegaly, normal bowel sounds, no guarding or rigidity. EXTREMITIES: No clubbing, left lower lobe extremity edema, no cyanosis, 2+ pulses and upper and lower extremities. MUSCULOSKELETAL: Muscle strength and tone are weak, patient has some bicep muscle tenderness in the right arm SPINE: No scoliosis or deformity SKIN: No rashes CENTRAL NERVOUS SYSTEM: Alert and oriented -3. No focal deficits, tone is normal in all 4 extremities. PSYCHIATRIC: Alert and oriented -3. Appropriate affect. Intact judgment and insight. Results - Laboratory Findings CBC and BMP: 06/30/18 12:07 06/30/18 12:07 PT/INR, D-dimer PT 10.3 sec (9.0-12.0) 06/30/18 12:07 INR 1.0 (<1.2) 06/30/18 12:07 Abnormal lab findings: Abnormal Labs 06/30/18 06/30/18 06/30/18 12:07 12:07 12:07 RBC 3.71 L Hgb 11.8 L Hct 34.5 L Glucose 103 H ALT 90 H CK-MB (CK-2) 2.5 H Total Protein 6.1 L Albumin 3.4 L Urine Protein 06/30/18 16:09 RBC Hgb Hct Glucose ALT CK-MB (CK-2) Total Protein Albumin Urine Protein Trace H - Diagnostic Findings Chest x-ray: report reviewed, image reviewed Additional studies: Lower extremity Doppler results reviewed Assessment and Plan Plan: Assessment: #1. Weakness, weight loss, of unknown etiology, neurologic outpatient evaluation is pending, has an upcoming appointment with Dr. Hinkle. #2. Proximal myopathy, with unknown etiology, patient's simvastatin has been discontinued. Total CPK was within normal limits #3. Left lower extremity swelling, lower extremity Dopplers were negative for DVT. #4. Hypertension, hyperlipidemia #5. Cerebral palsy #6. Seizure disorder #7. History of hernia repair #8. Anxiety #9. Lifetime nonsmoker #10. Benign prostatic hypertrophy #11. Chronic deformities of toes of both legs with some pressure ulcerations on the toes Plan: No major abnormalities were noted on the inpatient workup, including blood work , and lower extremity Doppler, or chest x-ray. No fever or chills, vital signs are stable. Recommend physical therapy, and placement to subacute rehab facility. Patient was referred for neurology for evaluation on an outpatient basis. No difficulty breathing, no fever or chills, room air pulse ox is 98%, afebrile. We'll continue to follow I performed a history & physical examination of the patient and discussed their management with my nurse practitioner, Nilda Shaw. I reviewed the nurse practitioner's note and agree with the documented findings and plan of care. Lung sounds are positive for clear breath sounds, diminished at the bases. The findings and the impression was discussed with the patient. I attest to the documentation by the nurse practitioner. Time with Patient: Greater than 30
--- NOTE | 2018-07-01 18:37 | MR ---
EXAMINATION TYPE: MR lumbar spine wo/w con DATE OF EXAM: 07/01/2018 COMPARISON: None HISTORY: lower limb weakness TECHNIQUE: Multiplanar, multisequence images of the lumbar spine were acquired utilizing [address] gadolinium contrast. The vertebra have normal alignment. There is slight narrowing of the disc spaces from L3 to S1. There is posterior disc bulging from L3 to S1. There is developmentally adequate spinal canal and no signi ficant spinal stenosis. There is no compression fracture. There is no lumbar paraspinal mass. There i s right-sided narrowing of the neural foramina at L3-4 L4-5 due to facet arthropathy and disc space n arrowing. I see no focal bone destruction. IMPRESSION: Multilevel spondylotic changes. No significant spinal stenosis. No fracture. Multilevel posterior dis c bulging.
[2018-07-01] MEDS: amLODIPine 10 MG TAB PO SCH (21:07)
[2018-07-01] MEDS: DOXAZOSIN 4 MG TAB PO SCH (21:07)
[2018-07-01] MEDS: traZODone HCL 100 MG TAB PO SCH (21:08)
[2018-07-01] MEDS: LOSARTAN 50 MG TAB PO SCH (21:08)
[2018-07-02] MEDS: PANTOPRAZOLE 40 MG TABLET PO SCH (08:10)
[2018-07-02] MEDS: PHENYTOIN SODIUM EXTENDED 100 MG CAP PO SCH ×3 (08:11→22:43)
--- NOTE | 2018-07-02 14:39 | CDI ---
Documentation Clarification Form Date: 07/02/2018 2:21:48 PM From: Any [email or web address] dumont, CCDS Admit Date: 07/01/2018 11:34:00 AM Patient Name: James Fink Visit Number: [id number] Discharge Date: ATTENTION: The Clinical Documentation Specialists (CDI) and [facility] Coding Staff appreciate your assistance in clarifying documentation. Please respond to the clarification below the line at the bottom and electronically sign. The CDI & [facility] Coding staff will review the response and follow-up if needed. Please note: Queries are made part of the Legal Health Record. If you have any questions, please contact the author of this message via ITS. Dr. Huseyin Joyce: Per the ED note, the patient has a history of heart failure. History/Risk Factors: Hypertension, Hyperlipidemia, BPH, Seizure disorder (no recent seizure). Cerebral Palsy. Clinical Indicators: Presented with generalized weakness, living alone, bilateral lower extremity edema, muscle atrophy. VS: T 96.7* BNP: 919 Chest X Ray: No evidence for acute pulmonary disease. Nutritional assessment: Protein supplement, weakness, consuming <75%. Home Rx: Desyrel, Norvasc, Dilantin, Losartan K, Lasix, Doxazosin Mesylate Treatment: IV fluid rate 20, IV Lasix, po Norvasc, po Cardura, po Cozaar In your professional opinion, can you please clarify the acuity and type of CHF if known? CHF ruled out CHF ruled in: Systolic Heart Failure: o Chronic Diastolic Heart Failure: o Chronic Systolic & Diastolic Heart Failure: o Chronic Unable to Determine Other, please specify (Last Revision: August 2017) My impression is already dictated it MTDD
[2018-07-02] MEDS: SODIUM CHLORIDE 0.9% 1,000 ML IV SCH (16:26)
--- NOTE | 2018-07-02 17:38 | P.PN ---
Subjective 72-year-old pleasant gentleman with history of cerebral palsy who takes care of himself at home, came in with complaints of of progressive weakness and able to stand and unable to take care of himself at home. Patient denied any fever chills patient denied any focal weakness patient has significant generalized weakness patient even has muscle B in both legs. Patient denied any back pain headache patient denied any tingling numbness which is new patient denied any fever chills dysuria shouldn't denied any cough or denied any diarrhea urine analysis chest x-ray no significant abnormality patient is taking Lasix dose of which is recently increased because of increased leg swelling and he had increased swelling in the more than right for which patient had a Doppler of bilateral extremity which did not show any DVT. This weakness has been progressing for few weeks and wanted to be placed wanted to go to subacute rehabilitation. 07/01/2018 No overnight events patient is requiring 2 person assist I'll obtain a MRI of the lumbar spine. My suspicion is low for ascending radiculopathy 07/02/2018 No overnight events and increased weakness. Patient is clinically doing well lumbar spine MRI did show multilevel degenerative disc disease but that no acute cord compression at this time. Constitutional: Denied any fatigue denied any fever. Cardio vascular: denied any chest pain, palpitations Gastrointestinal denied any nausea vomiting Pulmonary: Denied any shortness of breath cough Neurologic denied any new focal deficits All inpatient medications were reviewed and appropriate changes in these medications as dictated in the interval history and assessment and plan. Objective - Vital Signs Vital signs: Vital Signs Temp 98.3 F 07/02/18 14:15 Pulse 79 07/02/18 14:15 Resp 16 07/02/18 14:15 BP 145/70 07/02/18 14:15 Pulse Ox 97 07/02/18 14:15 Intake & Output 07/01/18 07/02/18 07/02/18 18:59 06:59 18:59 Intake Total 100 800 Balance 100 800 Weight 92.079 kg Intake: Oral 100 800 Other: Voiding Method Urinal Urinal Urinal Incontinent Incontinent Incontinent # Voids 2 3 1 - Exam PHYSICAL EXAMINATION: GENERAL: The patient is alert and oriented x3, not in any acute distress. Well developed, well nourished. HEENT: Pupils are round and equally reacting to light. EOMI. No scleral icterus. No conjunctival pallor. Normocephalic, atraumatic. No pharyngeal erythema. No thyromegaly. CARDIOVASCULAR: S1 and S2 present. No murmurs, rubs, or gallops. PULMONARY: Chest is clear to auscultation, no wheezing or crackles. ABDOMEN: Soft, nontender, nondistended, normoactive bowel sounds. No palpable organomegaly. MUSCULOSKELETAL: No joint swelling or deformity. EXTREMITIES: No cyanosis, clubbing, or pedal edema. NEUROLOGICAL: Does have significant generalized weakness multiple deformities in toes of both feet does have atrophy of both leg muscles no focal weakness was appreciated SKIN: No rashes. - Labs CBC & Chem 7: 06/30/18 12:07 06/30/18 12:07 Assessment and Plan Plan: -Generalized deconditioning: Etiology is not clear physical therapy and occupational therapy will evaluate the patient patient is not physically strong enough to stay home by himself will need placement to subacute rehabilitation. I'll also obtain lumbar spine MRI to assess because of her significant lower limb weakness, results as mentioned above no acute cord compression -Hyperlipidemia: On statin -Hypertension -Seizure disorder -Benign prostatic hypertrophy -Cerebral palsy history, supportive care -Multiple deformities of toes of both legs with some some pressure ulcerations on the toes which will need local wound care physical therapy these deformities or leading to his decreased functionality thereby overall generalized deconditioning, muscle atrophy
[2018-07-02] MEDS: amLODIPine 10 MG TAB PO SCH (20:21)
[2018-07-02] MEDS: DOXAZOSIN 4 MG TAB PO SCH (20:21)
[2018-07-02] MEDS: traZODone HCL 100 MG TAB PO SCH (20:22)
[2018-07-02] MEDS: LOSARTAN 50 MG TAB PO SCH (20:22)
[2018-07-03] MEDS: PHENYTOIN SODIUM EXTENDED 100 MG CAP PO SCH ×3 (08:36→21:28)
[2018-07-03] MEDS: PANTOPRAZOLE 40 MG TABLET PO SCH (08:36)
[2018-07-03] MEDS: SODIUM CHLORIDE 0.9% 1,000 ML IV SCH (12:28)
--- NOTE | 2018-07-03 14:31 | P.PN ---
Subjective 72-year-old pleasant gentleman with history of cerebral palsy who takes care of himself at home, came in with complaints of of progressive weakness and able to stand and unable to take care of himself at home. Patient denied any fever chills patient denied any focal weakness patient has significant generalized weakness patient even has muscle B in both legs. Patient denied any back pain headache patient denied any tingling numbness which is new patient denied any fever chills dysuria shouldn't denied any cough or denied any diarrhea urine analysis chest x-ray no significant abnormality patient is taking Lasix dose of which is recently increased because of increased leg swelling and he had increased swelling in the more than right for which patient had a Doppler of bilateral extremity which did not show any DVT. This weakness has been progressing for few weeks and wanted to be placed wanted to go to subacute rehabilitation. 07/01/2018 No overnight events patient is requiring 2 person assist I'll obtain a MRI of the lumbar spine. My suspicion is low for ascending radiculopathy 07/02/2018 No overnight events and increased weakness. Patient is clinically doing well lumbar spine MRI did show multilevel degenerative disc disease but that no acute cord compression at this time. 07/03/2018 Patient is feeling better awaiting disposition to subacute rehabilitation Constitutional: Denied any fatigue denied any fever. Cardio vascular: denied any chest pain, palpitations Gastrointestinal denied any nausea vomiting Pulmonary: Denied any shortness of breath cough Neurologic denied any new focal deficits All inpatient medications were reviewed and appropriate changes in these medications as dictated in the interval history and assessment and plan. Objective - Vital Signs Vital signs: Vital Signs Temp 98.5 F 07/03/18 05:44 Pulse 71 07/03/18 05:44 Resp 16 07/03/18 10:46 BP 143/75 07/03/18 10:46 Pulse Ox 93 L 07/03/18 10:46 Intake & Output 07/02/18 07/03/18 07/03/18 18:59 06:59 18:59 Intake Total 800 Balance 800 Intake: Oral 800 Other: Voiding Method Urinal Urinal Incontinent Incontinent Incontinent # Voids 2 2 # Bowel Movements 0 - Exam PHYSICAL EXAMINATION: GENERAL: The patient is alert and oriented x3, not in any acute distress. Well developed, well nourished. HEENT: Pupils are round and equally reacting to light. EOMI. No scleral icterus. No conjunctival pallor. Normocephalic, atraumatic. No pharyngeal erythema. No thyromegaly. CARDIOVASCULAR: S1 and S2 present. No murmurs, rubs, or gallops. PULMONARY: Chest is clear to auscultation, no wheezing or crackles. ABDOMEN: Soft, nontender, nondistended, normoactive bowel sounds. No palpable organomegaly. MUSCULOSKELETAL: No joint swelling or deformity. EXTREMITIES: No cyanosis, clubbing, or pedal edema. NEUROLOGICAL: Does have significant generalized weakness multiple deformities in toes of both feet does have atrophy of both leg muscles no focal weakness was appreciated SKIN: No rashes. - Labs CBC & Chem 7: 06/30/18 12:07 06/30/18 12:07 Assessment and Plan Plan: -Generalized deconditioning: Etiology is not clear physical therapy and occupational therapy will evaluate the patient patient is not physically strong enough to stay home by himself will need placement to subacute rehabilitation. I'll also obtain lumbar spine MRI to assess because of her significant lower limb weakness, results as mentioned above no acute cord compression -Hyperlipidemia: On statin -Hypertension -Seizure disorder -Benign prostatic hypertrophy -Cerebral palsy history, supportive care -Multiple deformities of toes of both legs with some some pressure ulcerations on the toes which will need local wound care physical therapy these deformities or leading to his decreased functionality thereby overall generalized deconditioning, muscle atrophy
[2018-07-03] MEDS: DOXAZOSIN 4 MG TAB PO SCH (20:44)
[2018-07-03] MEDS: amLODIPine 10 MG TAB PO SCH (20:44)
[2018-07-03] MEDS: LOSARTAN 50 MG TAB PO SCH (20:45)
[2018-07-03] MEDS: traZODone HCL 100 MG TAB PO SCH (20:45)
[2018-07-03 23:41] VITALS: RESP 20
[2018-07-04] MEDS: PHENYTOIN SODIUM EXTENDED 100 MG CAP PO SCH (07:44)
[2018-07-04] MEDS: PANTOPRAZOLE 40 MG TABLET PO SCH (07:44)
[2018-07-04 07:49] VITALS: BP 124/72; PULSE 66; TEMP 97.5
--- NOTE | 2018-07-04 14:19 | P.DS ---
Providers Date of admission: 07/01/18 11:34 Attending physician: Ericka Pringle Consults: 06/30/18 15:11 Consult Physician Stat Consulting Provider: Jamie Lewis Consult Reason/Comments: Weakness, lowerextremity swelling, unable to preform adl Do you want consulting provider notified?: Yes Primary care physician: Jamie Joshua [facility] Course: 72-year-old pleasant gentleman with history of cerebral palsy who takes care of himself at home, came in with complaints of of progressive weakness and able to stand and unable to take care of himself at home. Patient denied any fever chills patient denied any focal weakness patient has significant generalized weakness patient even has muscle B in both legs. Patient denied any back pain headache patient denied any tingling numbness which is new patient denied any fever chills dysuria shouldn't denied any cough or denied any diarrhea urine analysis chest x-ray no significant abnormality patient is taking Lasix dose of which is recently increased because of increased leg swelling and he had increased swelling in the more than right for which patient had a Doppler of bilateral extremity which did not show any DVT. This weakness has been progressing for few weeks and wanted to be placed wanted to go to subacute rehabilitation. 07/01/2018 No overnight events patient is requiring 2 person assist I'll obtain a MRI of the lumbar spine. My suspicion is low for ascending radiculopathy 07/02/2018 No overnight events and increased weakness. Patient is clinically doing well lumbar spine MRI did show multilevel degenerative disc disease but that no acute cord compression at this time. 07/03/2018 Patient is feeling better awaiting disposition to subacute rehabilitation 07/04/2018 Patient is clinically doing well will be discharged to subacute rehabilitation today PHYSICAL EXAMINATION: GENERAL: The patient is alert and oriented x3, not in any acute distress. Well developed, well nourished. HEENT: Pupils are round and equally reacting to light. EOMI. No scleral icterus. No conjunctival pallor. Normocephalic, atraumatic. No pharyngeal erythema. No thyromegaly. CARDIOVASCULAR: S1 and S2 present. No murmurs, rubs, or gallops. PULMONARY: Chest is clear to auscultation, no wheezing or crackles. ABDOMEN: Soft, nontender, nondistended, normoactive bowel sounds. No palpable organomegaly. MUSCULOSKELETAL: No joint swelling or deformity. EXTREMITIES: No cyanosis, clubbing, or pedal edema. NEUROLOGICAL: Does have significant generalized weakness multiple deformities in toes of both feet does have atrophy of both leg muscles no focal weakness was appreciated SKIN: No rashes. Assessment and Plan Plan: -Generalized deconditioning:patient is not physically strong enough to stay home by himself will need subacute rehabilitation. MRI of the lumbar spine did not show any acute cord compression, but does have chronic degenerative disc disease and multiple this prolapse -Hyperlipidemia: On statin -Hypertension -Seizure disorder -Benign prostatic hypertrophy -Cerebral palsy history, supportive care -Multiple deformities of toes of both legs with some some pressure ulcerations on the toes which will need local wound care physical therapy these deformities or leading to his decreased functionality thereby overall generalized deconditioning, muscle atrophy Patient Condition at Discharge: Stable Plan - Discharge Summary New Discharge Prescriptions: New Acetaminophen Tab [Tylenol Tab] 650 mg PO Q4H PRN #30 tablet PRN Reason: Pain Continue Furosemide [Lasix] 20 mg PO DAILY Phenytoin Sodium Extended [Dilantin] 100 mg PO TID Doxazosin Mesylate 8 mg PO HS traZODone HCL [Desyrel] 100 mg PO HS Losartan Potassium 100 mg PO HS Changed amLODIPine [Norvasc] 5 mg PO HS #0 Discharge Medication List Doxazosin Mesylate 8 mg PO HS 01/28/17 [History] Furosemide [Lasix] 20 mg PO DAILY 01/28/17 [History] Losartan Potassium 100 mg PO HS 01/28/17 [History] Phenytoin Sodium Extended [Dilantin] 100 mg PO TID 01/28/17 [History] traZODone HCL [Desyrel] 100 mg PO HS 01/28/17 [History] Acetaminophen Tab [Tylenol Tab] 650 mg PO Q4H PRN #30 tablet 07/04/18 [Rx] amLODIPine [Norvasc] 5 mg PO HS #0 07/04/18 [Rx] Follow up Appointment(s)/Referral(s): Jamie Lewis MD [Primary Care Provider] - 3 Days Tanmay Underwood MD [STAFF PHYSICIAN] - 1 Week Discharge Disposition: TRANSFER TO SNF/ECF
== END 2018-07-04 14:24 | DRG 948 ==
LOC: EC 10:41 → 4MS4W 14:58 → OBSVTOIN 07-01 11:34
PROVIDERS: ADMIT Internal Medicine; ATTEND Internal Medicine
DX: R53.1 Weakness (principal); M51.06 Intervertebral disc disorders with myelopathy, lumbar region; G80.9 Cerebral palsy, unspecified; E78.5 Hyperlipidemia, unspecified; F41.9 Anxiety disorder, unspecified; G40.909 Epilepsy, unspecified, not intractable, without status epilepticus; I11.0 Hypertensive heart disease with heart failure; I44.0 Atrioventricular block, first degree; R32 Unspecified urinary incontinence; Z60.2 Problems related to living alone; I50.9 Heart failure, unspecified; L89.899 Pressure ulcer of other site, unspecified stage; N40.0 Benign prostatic hyperplasia without lower urinary tract symptoms; Z79.899 Other long term (current) drug therapy; R63.4 Abnormal weight loss; Z68.29 Body mass index [BMI] 29.0-29.9, adult; Z88.1 Allergy status to other antibiotic agents
CPT/HCPCS: 36415; 71046; 72158; 80053; 81003; 82550; 82553; 83735; 83880; 84484; 85025; 85610; 85730; 93005; 93970; 96374; 99285

== ENCOUNTER → 2018-08-12 | Outpatient (CLI) | payer MEDICARE, OTHER ==
[2018-08-12 09:25] LABS: Blood Urea Nitrogen 19 mg/dL (9-20)
--- NOTE | 2018-08-12 12:06 | CT ---
EXAMINATION TYPE: CT ChestAbdPelvis wo/w con DATE OF EXAM: 08/12/2018 COMPARISON: MRI lumbar spine July 01, 2018 HISTORY: Severe lower extremity weakness, inability to ambulate CT DLP: 2868.1 mGycm. Automated Exposure Control for Dose Reduction was Utilized. CONTRAST: CT scan of the thorax, abdomen and pelvis is performed with oral and without and with IV Contrast, pa tient injected with 100 mL of Isovue 300. FINDINGS: LUNGS: Respiratory motion artifact degradation is seen making evaluation slightly suboptimal particul sonia for subcentimeter nodularity. There is trace right pleural effusion inferiorly. No suspicious fo shavon consolidation is present. No suspicious masses are identified. No pneumothorax is seen bilaterall y. Tracheobronchial tree is patent. MEDIASTINUM: There are no greater than 1 cm hilar or mediastinal lymph nodes. No cardiomegaly or pe ricardial effusion is seen. Coronary artery calcification is present which is noted marker for under lying coronary artery disease. OTHER: Small degree of subareolar flame-shaped gynecomastia is present bilaterally. LIVER/GB: Prominent right hepatic lobe with small left hepatic lobe likely normal variant is noted. R ight hepatic lobe extends to level of iliac crest. PANCREAS: Mild focal fat replaced atrophy of the proximal to mid body axial image 57 is noted. SPLEEN: No significant abnormality is seen. ADRENALS: Slightly low dense thickening to left adrenal gland favors benign hyperplasia. KIDNEYS: No significant abnormality is seen. BOWEL: Oral contrast extends to level of left colon. There is no suspicious small or large bowel dila tation. Diverticula in the sigmoid colon are present. No CT evidence of acute diverticulitis. There i s 1.5 cm diverticulum mesenteric surface of the third portion of duodenum axial image 64 series 6. GENITAL ORGANS: No gross abnormality seen. LYMPH NODES: No greater than 1cm abdominal or pelvic lymph nodes are appreciated. OSSEOUS STRUCTURES: S-shaped scoliotic curvature is present. Moderate multilevel anterior and lateral spurring of the thoracolumbar spine is identified. There is exaggerated thoracic kyphosis near cervi cothoracic junction noted. There is moderate multilevel disc space narrowing and spurring in the mid to lower lumbar spine. There is facet arthropathy and posterior spur disc complex causing spinal marley l effacement L4-L5 level axial image 83 where it is the most prominent. Spinal canal is fairly well m aintained above this in the thoracolumbar spine. Findings correlate with recent MRI. Moderate to camille re narrowing bilateral hip joints is present. OTHER: There is small umbilical hernia containing fat and tiny mesenteric vessels. [id number] c alcified plaque of the distal abdominal aorta extending to iliac branch vessels is present. IMPRESSION: 1. No suspicious new acute findings seen to comp for patient's symptoms of severe pain and difficulty ambulating. Multilevel degenerative changes in the thoracolumbar spine are noted as detailed above m ost prominent in the lower lumbar spine which correlates with recent MRI.
== END | disposition home or self-care (01) ==
LOC: RADCTMAIN 08:38
PROVIDERS: ATTEND Psychiatry & Neurology Neurology
DX: M47.815 Spondylosis without myelopathy or radiculopathy, thoracolumbar region (principal); M47.816 Spondylosis without myelopathy or radiculopathy, lumbar region; G80.9 Cerebral palsy, unspecified; R53.1 Weakness
CPT/HCPCS: 82565; 84520; 71270; 74178; 36415; Q9967

== ENCOUNTER → 2018-12-08 | Outpatient (CLI) | payer MEDICARE, OTHER ==
--- NOTE | 2018-12-08 14:23 | MR ---
EXAMINATION TYPE: MR brain wo/w con DATE OF EXAM: 12/08/2018 COMPARISON: NONE HISTORY: WEAKNESS Instability to stand imbalance. TECHNIQUE: Multiplanar, multisequence images of the brain and brainstem is performed without and with IV contras t, utilizing 9 mL intravenous Gadavist . FINDINGS: Exam slightly suboptimal due to fast. Protocol utilized due to patient's underlying inabili ty to hold still. Diffusion weighted images demonstrate no evidence of a recent infarct or other diff usion abnormality. There is no worrisome intra-axial fluid collection there is ventricular and sulca l prominence. There for small scattered foci of T2 hyperintensity with more confluent mild hyperinten sity in the periventricular regions. Old left parietal craniotomy changes with asymmetric left-sided volume loss noted. Midline structures demonstrate normal morphology. The craniocervical junction appears within normal limits. Post contrast images demonstrate no abnormal enhancement. The dural venous sinuses appear pa tent. The visualized sinuses are clear and the globes are intact. IMPRESSION: No evidence of acute or old large infarct. [id number] diffuse cerebral atrophy and chronic small vessel ischemic changes with postsurgical changes left parietal region and asymmetric s lightly more prominent volume loss or encephalomalacia noted at this level.
--- NOTE | 2018-12-09 18:21 | MR ---
EXAMINATION TYPE: MR cervical spine wo con DATE OF EXAM: 12/08/2018 COMPARISON: HISTORY: WEAKNESS Inability to stand TECHNIQUE: Multiplanar, multisequence images of the cervical spine were acquired. There is extensive artifact on the exam. C2-C3: No evidence for degenerative disc disease. No disc bulge/herniation or protrusion. No Canal stenosis. Foramina are patent bilaterally. C3-C4: Posterior extension of endplate disc complex causes mild anterior mass effect on the thecal sa c. C4-C5: Posterior extension of endplate disc complex causes mild anterior mass effect on the thecal sa c. No significant central stenosis. C5-C6: Suspect a posterior disc herniation possibly contacting the anterior cervical cord. C6-C7: Posterior broad-based disc bulge suspected causing mild anterior mass effect on the thecal sac . C7-T1: No evidence for degenerative disc disease. No disc bulge/herniation or protrusion. No Canal stenosis. Foramina are patent bilaterally. Cervical segments are intact. There is normal alignment. Craniovertebral junction relationships are within normal limits. Cervical vertebral bodies show preserved height and alignment. Loss of disc he ight and signal at intervertebral levels especially C3-4, C4-5 and C5-6 compatible disc desiccation a nd degenerative disc disease. IMPRESSION: There is extensive artifact present. Degenerative disc changes. Exam is limited.
== END | disposition home or self-care (01) ==
LOC: RADMRIMAIN 11:37
PROVIDERS: ATTEND Psychiatry & Neurology Neurology
DX: G31.9 Degenerative disease of nervous system, unspecified (principal); I67.82 Cerebral ischemia; G80.9 Cerebral palsy, unspecified; Z98.890 Other specified postprocedural states; M47.892 Other spondylosis, cervical region
CPT/HCPCS: 70553; 72141; A9585

== ENCOUNTER 2023-06-04 12:51 | Inpatient (IN) | payer MEDICARE, OTHER ==
[2023-06-04] MEDS ORDERED: FLUORESCEIN STRIPS 1 MG STRIP RIGHT EYE ONE (13:39)
[2023-06-04] MEDS ORDERED: PROPARACAINE 0.5% OPHTH DROPS 15 ML BTL RIGHT EYE STA (13:39)
--- NOTE | 2023-06-04 13:50 | ED ---
Skin/Abscess/FB HPI - General Source: patient, RN notes reviewed Mode of arrival: ambulatory Limitations: no limitations <Ashley Chung - Last Filed: 06/13/23 18:06> <German Gibbons - Last Filed: 06/14/23 14:44> - General Chief complaint: Skin/Abscess/Foreign Body Stated complaint: Facial Swelling Time Seen by Provider: 06/04/23 13:07 - History of Present Illness Initial comments: Patient is a 77-year-old male presented ER with chief complaint of bilateral eye swelling. Patient's family reports that on 06/02/23, patient started having right eye swelling and a rash on his forehead. Patient was seen at urgent care and given steroids, Augmentin and Muprion ointment. Today the rash has continued and swelling is now involving the left inferior periorbital and his right eye is now completely swollen shut. Patient denies any visual disturbances. Patient states that it is a uncomfortable sore pain. He states this 2 out of 10. Patient denies any fevers, chills, night sweats. (Ashley Cantor) - Related Data Home Medications Medication Instructions Recorded Confirmed Doxazosin Mesylate 8 mg PO HS 01/28/17 06/04/23 Losartan Potassium 100 mg PO HS 01/28/17 06/04/23 Phenytoin Sodium Extended 100 mg PO TID 01/28/17 06/04/23 [Dilantin] Albuterol Sulfate [Accuneb] 0.63 ml INHALATION RT-Q4H PRN 06/04/23 06/04/23 Atorvastatin [Lipitor] 20 mg PO HS 06/04/23 06/04/23 Ergocalciferol [Vitamin D2 (1250 1,250 mcg PO TU 06/04/23 06/04/23 Mcg = 14986 Iu)] Furosemide [Lasix] 40 mg PO DAILY 06/04/23 06/04/23 Lactase [Lactaid] 3,000 unit PO AC-TID 06/04/23 06/04/23 Loperamide [Imodium] 2 - 4 mg PO QID PRN 06/04/23 06/04/23 Meloxicam [Mobic] 15 mg PO DAILY PRN 06/04/23 06/04/23 Menthol [Biofreeze] 1 applic TOPICAL DAILY PRN 06/04/23 06/04/23 Psyllium Husk (with Sugar) 6 gm PO DAILY 06/04/23 06/04/23 [Metamucil Powder] guaiFENesin [guaiFENesin Oral 100 mg PO Q4H PRN 06/04/23 06/04/23 Solution] traZODone HCL [Desyrel] 50 mg PO HS 06/04/23 06/04/23 Previous Rx's Medication Instructions Recorded Acetaminophen Tab [Tylenol] 650 mg PO Q4H PRN #30 tablet 07/04/18 amLODIPine [Norvasc] 5 mg PO HS #0 07/04/18 Acyclovir [Zovirax] 800 mg PO TID #20 tab 06/06/23 predniSONE 10 mg PO DAILY #30 tab 06/06/23 Allergies Allergy/AdvReac Type Severity Reaction Status Date / Time Tetracyclines Allergy Rash/Hives Verified 06/04/23 16:50 Review of Systems ROS Other: All systems not noted in ROS Statement are negative. <Ashley Chung - Last Filed: 06/13/23 18:06> ROS Other: All systems not noted in ROS Statement are negative. <German Gibbons - Last Filed: 06/14/23 14:44> ROS Statement: Those systems with pertinent positive or pertinent negative responses have been documented in the HPI. Past Medical History Past Medical History: Hyperlipidemia, Hypertension, Prostate Disorder, Seizure Disorder Additional Past Medical History / Comment(s): LAST SEIZURE AT AGE 16 History of Any Multi-Drug Resistant Organisms: None Reported Past Surgical History: Hernia Repair, Tonsillectomy Additional Past Surgical History / Comment(s): JUNIOR FUNDLOPLASTY-2013. EGD. COLONOSCOPY. REPAIR INDEX FINGER RT HAND Past Anesthesia/Blood Transfusion Reactions: No Reported Reaction Past Psychological History: Anxiety Smoking Status: Never smoker Past Alcohol Use History: None Reported Past Drug Use History: None Reported - Past Family History Mother Family Medical History: No Reported History <Ashley Chung - Last Filed: 06/13/23 18:06> General Exam Limitations: no limitations General appearance: alert, in no apparent distress Head exam: Present: atraumatic, normocephalic, normal inspection Eye exam: Present: PERRL, periorbital tenderness (right swollen shut. left inferior periorbital swelling), other (Fluroscein stain is negative for corneal or scleral involvement) Pupils: Present: normal accommodation ENT exam: Present: normal exam, normal oropharynx, mucous membranes moist, TM's normal bilaterally Neck exam: Present: normal inspection. Absent: tenderness, meningismus, lymphadenopathy Respiratory exam: Present: normal lung sounds bilaterally. Absent: respiratory distress, wheezes, rales, rhonchi, stridor Cardiovascular Exam: Present: regular rate, normal rhythm, normal heart sounds. Absent: systolic murmur, diastolic murmur, rubs, gallop, clicks Neurological exam: Present: alert, oriented X3, CN II-XII intact Psychiatric exam: Present: normal affect, normal mood Skin exam: Present: warm, dry, intact, rash (vesicular rash to right forehead) <Ashley Chung - Last Filed: 06/13/23 18:06> General appearance: alert, in no apparent distress Head exam: Present: atraumatic, normocephalic, normal inspection Eye exam: Present: normal appearance, PERRL, EOMI. Absent: scleral icterus, conjunctival injection, periorbital swelling ENT exam: Present: normal exam, mucous membranes moist Neck exam: Present: normal inspection. Absent: tenderness, meningismus, lymphadenopathy Respiratory exam: Present: normal lung sounds bilaterally. Absent: respiratory distress, wheezes, rales, rhonchi, stridor Cardiovascular Exam: Present: regular rate, normal rhythm, normal heart sounds. Absent: systolic murmur, diastolic murmur, rubs, gallop, clicks GI/Abdominal exam: Present: soft, normal bowel sounds. Absent: distended, tenderness, guarding, rebound, rigid Extremities exam: Present: normal inspection, full ROM, normal capillary refill. Absent: tenderness, pedal edema, joint swelling, calf tenderness Back exam: Present: normal inspection Neurological exam: Present: alert, oriented X3, CN II-XII intact Psychiatric exam: Present: normal affect, normal mood Skin exam: Present: warm, dry, intact, normal color. Absent: rash <German Gibbons - Last Filed: 06/14/23 14:44> Course <German Gibbons - Last Filed: 06/14/23 14:44> Vital Signs 06/04/23 06/04/23 06/04/23 12:52 16:01 17:52 Temperature 99.3 F 99.2 F 97.8 F Pulse Rate 87 76 94 Respiratory 18 18 18 Rate Blood Pressure 161/81 156/76 136/65 O2 Sat by Pulse 80 L 97 96 Oximetry 06/04/23 06/05/23 06/05/23 21:26 02:00 06:17 Temperature 98.3 F Pulse Rate 79 82 80 Respiratory 16 18 18 Rate Blood Pressure 132/78 128/70 126/70 O2 Sat by Pulse 98 98 100 Oximetry 06/05/23 06/05/23 09:27 14:58 Temperature 98 F 98.2 F Pulse Rate 75 71 Respiratory 18 18 Rate Blood Pressure 134/78 132/87 O2 Sat by Pulse 96 98 Oximetry - Reevaluation(s) Reevaluation #1: 06/04/23 20:43 Record is reviewed (German Gibbons) Reevaluation #2: 06/04/23 20:43 Patient informed of results and questions answered (German Gibbons) Reevaluation #3: 06/04/23 20:43 Patient has mild improvement in symptoms here in the ER (German Gibbons) - Consultations Consultation #1: Spoke with Dr. norman agrees to admit this patient (German Gibbons) Consultation #2: Spoke with cranberry grower on-call who will see this patient in close follow-up (German Gibbons) Medical Decision Making - Lab Data Result diagrams: 06/06/23 03:43 06/06/23 03:43 <Ashley Chung - Last Filed: 06/13/23 18:06> - Lab Data Result diagrams: 06/06/23 03:43 06/06/23 03:43 <German Gibbons - Last Filed: 06/14/23 14:44> - Medical Decision Making Was pt. sent in by a medical professional or institution (, PA, BABY DOCTOR, urgent care, hospital, or intermediate...) When possible be specific @ -[No] Did you speak to anyone other than the patient for history (EMS, parent, family, police, friend...)? What history was obtained from this source @ -[No] Did you review nursing and triage notes (agree or disagree)? Why? @ -[I reviewed and agree with nursing and triage notes] Were old charts reviewed (outside hosp., previous admission, EMS record, old EKG, old radiological studies, urgent care reports/EKG's, intermediate records)? Report findings @ -[No old charts were reviewed] Differential Diagnosis (chest pain, altered mental status, abdominal pain women, abdominal pain men, vaginal bleeding, weakness, fever, dyspnea, syncope, headache, dizziness, GI bleed, back pain, seizure, CVA, palpatations, mental health, musculoskeletal)? @ -[not applicable] EKG interpreted by me (3pts min.). @ -[As above] X-rays interpreted by me (1pt min.). @ -[None done] CT interpreted by me (1pt min.). @ -[None done] U/S interpreted by me (1pt. min.). @ -[None done] What testing was considered but not performed or refused? (CT, X-rays, U/S, labs)? Why? @ -[None] What meds were considered but not given or refused? Why? @ -[None] Did you discuss the management of the patient with other professionals (professionals i.e. , PA, BABY DOCTOR, lab, RT, psych nurse, social media editor, cement contractor, teacher, animal park code enforcement officer, bilingual case manager)? Give summary @ -[I discussed this case with Dr. Landry, cranberry grower, from [facility]. She advised to have patient seen outpatient in [place] rather than transfer as he will need close follow-up. She stated if unable to get patient in to local cranberry grower she would accept patient. Was smoking cessation discussed for >3mins.? @ -[No] Was critical care preformed (if so, how long)? @ -[No] Were there social determinants of health that impacted care today? How? (Homelessness, low income, unemployed, alcoholism, drug addiction, transportation, low edu. Level, literacy, decrease access to med. care, shelter, rehab)? @ -[No] Was there de-escalation of care discussed even if they declined (Discuss DNR or withdrawal of care, Hospice)? DNR status @ -[No] What co-morbidities impacted this encounter? (DM, HTN, Smoking, COPD, CAD, Cancer, CVA, ARF, Chemo, Hep., AIDS, mental health diagnosis, sleep apnea, mo rbid obesity)? @ -[None] Was patient admitted / discharged? Hospital course, mention meds given and route, prescriptions, significant lab abnormalities, going to OR and other pertinent info. @ -[Patient is 77-year-old male presented ER with chief complaint of right eye swelling. There is concern for zoster ophthalmicus. I spoke with Dr. Landry, cranberry grower, from [facility]. She advised to have patient seen outpatient in [place] rather than transfer as he will need close follow-up. She stated if unable to get patient in to local cranberry grower she would accept patient. Dr. Gibbons spoke with Dr. Swanson who accepts admission. Patient admitted for further care. ] (Ashley Chung) 77 male to the emergency department for evaluation of what appears to be zoster ophthalmicus right eye. Patient will be admitted for antivirals steroids and follow-up with cranberry grower as an outpatient (German Gibbons) Disposition <Ashley Chung - Last Filed: 06/13/23 18:06> Is patient prescribed a controlled substance at d/c from ED?: No Time of Disposition: 18:00 <German Gibbons - Last Filed: 06/14/23 14:44> Clinical Impression: History of cerebral palsy, Herpes zoster ophthalmicus, right eye, Weakness Disposition: ADMITTED IP TO THIS HOSP Condition: Good
[2023-06-04] MEDS ORDERED: MORPHINE SULFATE 4 MG/ML SYRINGE IV PRN (18:41)
[2023-06-04] MEDS ORDERED: KETOROLAC 15 MG/ML 1 ML VIAL IVP STA (18:41)
[2023-06-04] MEDS ORDERED: ONDANSETRON 4 MG/2 ML VIAL IVP PRN (18:41)
[2023-06-04] MEDS ORDERED: NALOXONE 0.4 MG/ML 1 ML VIAL IV PRN (18:41)
[2023-06-04] MEDS ORDERED: DEXAMETHASONE SOD PHOSPHATE 10 MG/ML 1 ML VIAL IVP STA (18:42)
[2023-06-04] MEDS: SODIUM CHLORIDE 0.9% 1,000 ML IV SCH (19:19)
[2023-06-05] MEDS ORDERED: ALBUTEROL NEBULIZED 2.5 MG/3 ML INHALATION PRN (08:32)
[2023-06-05] MEDS ORDERED: MELOXICAM 7.5 MG TAB PO PRN (08:32)
[2023-06-05] MEDS ORDERED: NON FORMULARY DRUG (Menthol [Biofreeze] 89 ML Gel..Ml.) TOPICAL PRN (08:32)
[2023-06-05] MEDS ORDERED: guaiFENesin SYRUP 100MG/5ML 200 MG/10 ML CUP PO PRN (08:32)
[2023-06-05] MEDS ORDERED: ACETAMINOPHEN TAB 325 MG TAB PO PRN (08:32)
[2023-06-05] MEDS: PSYLLIUM HUSK 100% 6 GM PACKET PO SCH (09:23)
[2023-06-05] MEDS: FUROSEMIDE 40 MG TAB PO SCH (09:24)
[2023-06-05] MEDS: PHENYTOIN SODIUM EXTENDED 100 MG CAP PO SCH ×3 (09:24→21:49)
[2023-06-05] MEDS ORDERED: NON FORMULARY DRUG (Lactase [Lactaid] 3,000 UNIT Tablet) PO SCH (12:30)
[2023-06-05] MEDS: predniSONE 20 MG TAB PO SCH (13:07)
[2023-06-05] MEDS: ENOXAPARIN 40 MG/0.4 ML SYRINGE SQ SCH (13:08)
--- NOTE | 2023-06-05 15:26 | P.HPIM ---
History of Present Illness H&P Date: 06/04/23 Chief Complaint: Right eye swelling with the rash This is a pleasant 77-year-old patient I saw in the ER . Patient presented with a rash on the right side of the forehead including swelling of the right eye. Patient's brother the bedside to give most of the history. Patient lives at [facility]. Does use a walker and a Wheelchair. Has underlying dementia. Patient was noticed to have redness and a rash with some breakdown on the right forehead by Dr. parker to include the right upper and lower eyelid and the surrounding area with puffiness. Eyes had closed up. Discomfort. Denied any fever and chills. No severe pain in the right except for discomfort. There was a concern about involvement of the eye. Ophthalmology was not available senior billing consultant in the hospital. The plan was discussed with the patient's brother the bedside that if ophthalmology is able to give a consult and advise Q the patient. Otherwise patient will need to see ophthalmology because of possible involvement of the eye. Otherwise patient appetite is fair. Review of systems: GEN.: Tired EYES: As above HEENT: None NECK: None RESPIRATORY: None CARDIOVASCULAR: None GASTROINTESTINAL: None GENITOURINARY: None MUSCULOSKELETAL: Joint pains LYMPHATICS: None HEMATOLOGICAL: None PSYCHIATRY: Bit forgetful NEUROLOGICAL: As use a walker and a wheelchair Social history: Resident of assisted living [facility]. Does use a walker and wheelchair. No history of smoking or alcohol. Physical examination: VITAL SIGNS: 99.3, 87, 18, 1 36 x 65, 96% room air GENERAL: BMI 33. 3, laying in bed awake not in distress. EYES: area of redness on the right forehead extending down over the right eye. Periorbital edema.. Slight injection in the conjunctiva. Area of papules and some breakdown with crusting.l. HEENT: External appearance of nose and ears normal, oral cavity grossly normal. NECK: JVD not raised; masses not palpable. HEART: First and second heart sounds are normal; no edema. LUNGS: Respiratory rate normal; clear to auscultation. ABDOMEN: Soft, nontender, liver spleen not palpable, no masses palpable. PSYCH: Patient is able tonsil simple questions. State his name. Knows that is in the hospital.l. MUSCULOSKELETAL:No Clubbing/cyanosis;muscles-grossly intact. OA NEUROLOGICAL: Cranial nerves grossly intact; no facial asymmetry, power and sensation grossly intact. LYMPHATICS: No lymph nodes palpable in the axilla and neck Assessment and plan: -Acute severe herpes zoster ophthalmicus and also including the possibility of even brunch. Patient has significant crusting. Unclear if the eyes involved. Complains of discomfort. No severe pain. Discussed with Dr. Felix from ER-we'll give acyclovir and steroids.. At the patient's brother. Afebrile mitten stitcher calls back and gives us a plan as his concern about the IV involved. Then we'll admit accordingly. Otherwise patient's to be transferred out. -Essential hypertension Amlodipine 5 mg. Losartan -BPH Doxazosin -Seizure history Dilantin -Hyperlipidemia Lipitor -Chronic gait dysfunction/medical debility. Uses a walker we will do baseline -Primary osteoarthritis Mobic when necessary. -Anxiety Trazodone -Moderate to severe cognitive impairment. Dementia. -Full code Past Medical History Past Medical History: Hyperlipidemia, Hypertension, Prostate Disorder, Seizure Disorder Additional Past Medical History / Comment(s): LAST SEIZURE AT AGE 16 History of Any Multi-Drug Resistant Organisms: None Reported Past Surgical History: Hernia Repair, Tonsillectomy Additional Past Surgical History / Comment(s): JUNIOR FUNDLOPLASTY-2012. EGD. COLONOSCOPY. REPAIR INDEX FINGER RT HAND Past Anesthesia/Blood Transfusion Reactions: No Reported Reaction Past Psychological History: Anxiety Smoking Status: Never smoker Past Alcohol Use History: None Reported Past Drug Use History: None Reported - Past Family History Mother Family Medical History: No Reported History Medications and Allergies Home Medications Medication Instructions Recorded Confirmed Type Doxazosin Mesylate 8 mg PO HS 01/28/17 06/04/23 History Losartan Potassium 100 mg PO HS 01/28/17 06/04/23 History Phenytoin Sodium Extended 100 mg PO TID 01/28/17 06/04/23 History [Dilantin] Acetaminophen Tab [Tylenol Tab] 650 mg PO Q4H PRN #30 tablet 07/04/18 06/04/23 Rx amLODIPine [Norvasc] 5 mg PO HS #0 07/04/18 06/04/23 Rx Albuterol Sulfate [Accuneb] 0.63 ml INHALATION RT-Q4H PRN 06/04/23 06/04/23 History Amoxic-Pot Clav 875-125Mg 1 tab PO BID 06/04/23 06/04/23 History [Augmentin 875-125] Atorvastatin [Lipitor] 20 mg PO HS 06/04/23 06/04/23 History Ergocalciferol [Vitamin D2 (1250 1,250 mcg PO TU 06/04/23 06/04/23 History Mcg = 49474 Iu)] Furosemide [Lasix] 40 mg PO DAILY 06/04/23 06/04/23 History Lactase [Lactaid] 3,000 unit PO AC-TID 06/04/23 06/04/23 History Loperamide [Imodium] 2 - 4 mg PO QID PRN 06/04/23 06/04/23 History Meloxicam [Mobic] 15 mg PO DAILY PRN 06/04/23 06/04/23 History Menthol [Biofreeze] 1 applic TOPICAL DAILY PRN 06/04/23 06/04/23 History Mupirocin 2% Oint [Bactroban 2% 1 applic TOPICAL BID 06/04/23 06/04/23 History Oint] Nystatin 100,000 Unit/gm Powd 1 applic TOPICAL BID PRN 06/04/23 06/04/23 History [Mycostatin Powder] Psyllium Husk (with Sugar) 6 gm PO DAILY 06/04/23 06/04/23 History [Metamucil Powder] guaiFENesin [guaiFENesin Oral 100 mg PO Q4H PRN 06/04/23 06/04/23 History Solution] traZODone HCL [Desyrel] 50 mg PO HS 06/04/23 06/04/23 History Allergies Allergy/AdvReac Type Severity Reaction Status Date / Time Tetracyclines Allergy Rash/Hives Verified 06/04/23 16:50 Physical Exam Vitals: Vital Signs Temp Pulse Resp BP Pulse Ox 06/05/23 09:27 98 F 75 18 134/78 96 06/05/23 06:17 80 18 126/70 100 06/05/23 02:00 82 18 128/70 98 06/04/23 21:26 98.3 F 79 16 132/78 98 06/04/23 17:52 97.8 F 94 18 136/65 96 06/04/23 16:01 99.2 F 76 18 156/76 97 06/04/23 12:52 99.3 F 87 18 161/81 80 L
--- NOTE | 2023-06-05 15:33 | P.PN ---
Progress Note - Text Progress Note Date: 06/05/23 Chief Complaint: Right eye swelling with the rash This is a pleasant 77-year-old patient I saw in the ER . Patient presented with a rash on the right side of the forehead including swelling of the right eye. Patient's brother the bedside to give most of the history. Patient lives at [facility]. Does use a walker and a Wheelchair. Has underlying dementia. Patient was noticed to have redness and a rash with some breakdown on the right forehead by Dr. parker to include the right upper and lower eyelid and the surrounding area with puffiness. Eyes had closed up. Discomfort. Denied any fever and chills. No severe pain in the right except for discomfort. There was a concern about involvement of the eye. 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 The plan was discussed with the patient's brother the bedside that if ophthalmology is able to give a consult and advise Q the patient. Otherwise patient will need to see ophthalmology because of possible involvement of the eye. Otherwise patient appetite is fair. 06/05/2023: Dr. Jacobs from the ER called me yesterday evening. He was able to get in touch with Dr. York from ophthalmology. Patient to follow-up in the office on Friday. Continue current medication treatment plan. Also seen bedside test done negative. Transfer was canceled. ER physician started the patient on acyclovir and steroids. Today patient feels better. Periorbital swelling has gone down. Able tachycar elliot open his eye. Some conjunctival injection. Discomfort present. No pain. I spoke to patient over the phone. Jeff. Yi make an appointment with Dr. Karel York tomorrow. Active Medications Acetaminophen (Acetaminophen Tab 325 Mg Tab) 650 mg PO Q4H PRN PRN Reason: Pain Albuterol Sulfate (Albuterol Nebulized 2.5 Mg/3 Ml) 2.5 mg INHALATION RT-Q4H PRN PRN Reason: Shortness Of Breath Amlodipine Besylate (Amlodipine 5 Mg Tab) 5 mg PO HS [facility] Atorvastatin Calcium (Atorvastatin 20 Mg Tab) 20 mg PO HS [facility] Doxazosin Mesylate (Doxazosin 4 Mg Tab) 8 mg PO HS [facility] Enoxaparin Sodium (Enoxaparin 40 Mg/0.4 Ml Syringe) 40 mg SQ DAILY [facility] Last Admin: 06/05/23 13:08 Dose: 40 mg Ergocalciferol (Ergocalciferol 1,250 Mcg (50,000 Iu) Capsule) 1,250 mcg PO TU [facility] Furosemide (Furosemide 40 Mg Tab) 40 mg PO DAILY [facility] Last Admin: 06/05/23 09:24 Dose: 40 mg Guaifenesin (Guaifenesin Syrup 100mg/5ml 200 Mg/10 Ml Cup) 100 mg PO Q4H PRN PRN Reason: Cough Sodium Chloride (Saline 0.9%) 1,000 mls @ 20 mls/hr IV .Q24H [facility] Last Admin: 06/04/23 19:19 Dose: 20 mls/hr Acyclovir Sodium 850 mg/ (Sodium Chloride) 267 mls @ 270 mls/hr IVPB Q8HR [facility]; Protocol Losartan Potassium (Losartan 50 Mg Tab) 100 mg PO [facility] Meloxicam (Meloxicam 7.5 Mg Tab) 15 mg PO DAILY PRN PRN Reason: Pain Naloxone HCl (Naloxone 0.4 Mg/Ml 1 Ml Vial) 0.2 mg IV Q2M PRN PRN Reason: Opioid Reversal Ondansetron HCl (Ondansetron 4 Mg/2 Ml Vial) 4 mg IVP Q8HR PRN PRN Reason: Nausea And Vomiting Phenytoin Sodium (Phenytoin Sodium Extended 100 Mg Cap) 100 mg PO TID [facility] Last Admin: 06/05/23 09:24 Dose: 100 mg Prednisone (Prednisone 20 Mg Tab) 40 mg PO DAILY [facility] Last Admin: 06/05/23 13:07 Dose: 40 mg Psyllium Hydrophilic Mucilloid (Psyllium Husk 100% 6 Gm Packet) 6 gm PO DAILY [facility] Last Admin: 06/05/23 09:23 Dose: 6 gm Trazodone HCl (Trazodone Hcl 50 Mg Tab) 50 mg PO [facility] Social history: Resident of assisted [facility]. Does use a walker and wheelchair. No history of smoking or alcohol. Physical examination: VITAL SIGNS: 8.2, 71, 18, 132/87, 98% room air GENERAL: laying in bed awake not in distress. EYES: area of redness on the right forehead extending down over the right eye. Periorbital edema.. Slight injection in the conjunctiva. Area of papules and some breakdown with crusting.: Crusting is gone down. Periorbital swelling has gone down. Able to open eye more. l. HEENT: External appearance of nose and ears normal, oral cavity grossly normal. NECK: JVD not raised; masses not palpable. HEART: First and second heart sounds are normal; no edema. LUNGS: Respiratory rate normal; clear to auscultation. ABDOMEN: Soft, nontender, liver spleen not palpable, no masses palpable. PSYCH: Patient is able tonsil simple questions. State his name. Knows that is in the hospital.l. MUSCULOSKELETAL:No Clubbing/cyanosis;muscles-grossly intact. OA NEUROLOGICAL: Cranial nerves grossly intact; no facial asymmetry, power and sensation grossly intact. LYMPHATICS: No lymph nodes palpable in the axilla and neck Assessment and plan: -Acute severe herpes zoster ophthalmicus and also including the possibility of even brunch. Patient has significant crusting. Unclear if the eyes involved. Complains of discomfort. No severe pain. IV acyclovir. Prednisone. Follow-up with Dr. 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 Losartan -BPH Doxazosin -Seizure history Dilantin -Hyperlipidemia Lipitor -Chronic gait dysfunction/medical debility. Uses a walker we will do baseline -Primary osteoarthritis Mobic when necessary. -Anxiety Trazodone -Moderate to severe cognitive impairment. Dementia. -Full code Past Medical History Past Medical History: Hyperlipidemia, Hypertension, Prostate Disorder, Seizure Disorder Additional Past Medical History / Comment(s): LAST SEIZURE AT AGE 16 History of Any Multi-Drug Resistant Organisms: None Reported Past Surgical History: Hernia Repair, Tonsillectomy Additional Past Surgical History / Comment(s): JUNIOR FUNDLOPLASTY-2012. EGD. COLONOSCOPY. REPAIR INDEX FINGER RT HAND Past Anesthesia/Blood Transfusion Reactions: No Reported Reaction Past Psychological History: Anxiety Smoking Status: Never smoker Past Alcohol Use History: None Reported Past Drug Use History: None Reported
[2023-06-05] MEDS: ACYCLOVIR SODIUM 850 MG in SODIUM CHLORIDE 0.9% 250 ML IVPB SCH ×2 (16:45→23:38)
[2023-06-05] MEDS: SODIUM CHLORIDE 0.9% 1,000 ML IV SCH (18:31)
[2023-06-05] MEDS ORDERED: traZODone HCL 50 MG TAB PO SCH (21:00)
[2023-06-05] MEDS ORDERED: DOXAZOSIN 4 MG TAB PO SCH (21:00)
[2023-06-05] MEDS ORDERED: LOSARTAN 50 MG TAB PO SCH (21:00)
[2023-06-05] MEDS ORDERED: amLODIPine 5 MG TAB PO SCH (21:00)
[2023-06-05] MEDS ORDERED: ATORVASTATIN 20 MG TAB PO SCH (21:00)
[2023-06-06 04:37] LABS: Basophils % (A) 0 %; Eosinophils % (A) 1 %; HCT 37.9 % (39.0-53.0); HGB 12.9 gm/dL (13.0-17.5); Lymphocytes # (A) 1.8 k/uL (1.0-4.8); Lymphocytes % (A) 25 %; MCH 33.5 pg (25.0-35.0); MCHC 34.1 g/dL (31.0-37.0); MCV 98.5 fL (80.0-100.0); Mean Platelet Volume 8.1; Monocytes # (A) 0.6 k/uL (0-1.0); Monocytes % (A) 9 %; Neutrophils # (A) 4.4 k/uL (1.3-7.7); Neutrophils % (A) 62 %; Platelet Count 175 k/uL (150-450); RBC 3.85 m/uL (4.30-5.90); RDW 12.3 % (11.5-15.5); WBC 7.1 k/uL (3.8-10.6)
[2023-06-06 04:51] LABS: ALT 28 U/L (4-49); AST 26 U/L (17-59); African American GFR (CKD) >90 (>60 ml/min/1.73 sqM); Albumin 3.3 g/dL (3.5-5.0); Alkaline Phosphatase 99 U/L (38-126); Anion Gap 8 mmol/L; Blood Urea Nitrogen 25 mg/dL (9-20); Carbon Dioxide 25 mmol/L (22-30); Chloride 104 mmol/L (98-107); Glucose 104 mg/dL (74-99); Non-African American GFR(CKD) 89 (>60 ml/min/1.73 sqM); Potassium 3.9 mmol/L (3.5-5.1); Sodium 137 mmol/L (137-145); Total Bilirubin 0.4 mg/dL (0.2-1.3); Total Protein 5.8 g/dL (6.3-8.2)
[2023-06-06] MEDS: ACYCLOVIR SODIUM 850 MG in SODIUM CHLORIDE 0.9% 250 ML IVPB SCH (08:39)
[2023-06-06] MEDS: ENOXAPARIN 40 MG/0.4 ML SYRINGE SQ SCH (08:40)
[2023-06-06] MEDS: FUROSEMIDE 40 MG TAB PO SCH (08:40)
[2023-06-06] MEDS: predniSONE 20 MG TAB PO SCH (08:40)
[2023-06-06] MEDS: PSYLLIUM HUSK 100% 6 GM PACKET PO SCH (08:41)
[2023-06-06] MEDS: PHENYTOIN SODIUM EXTENDED 100 MG CAP PO SCH (08:41)
[2023-06-06 09:51] VITALS: BP 131/71; PULSE 75; RESP 16; TEMP 98.1
--- NOTE | 2023-06-06 13:24 | P.DS ---
Providers Date of admission: 06/05/23 11:28 Expected date of discharge: 06/06/23 Attending physician: Espinoza Anderson Primary care physician: [facility] Course: Chief Complaint: Right eye swelling with the rash This is a pleasant 77-year-old patient I saw in the ER . Patient presented with a rash on the right side of the forehead including swelling of the right eye. Patient's brother the bedside to give most of the history. Patient lives at [facility]. Does use a walker and a Wheelchair. Has underlying dementia. Patient was noticed to have redness and a rash with some breakdown on the right forehead by Dr. parker to include the right upper and lower eyelid and the surrounding area with puffiness. Eyes had closed up. Discomfort. Denied any fever and chills. No severe pain in the right except for discomfort. There was a concern about involvement of the eye. 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 The plan was discussed with the patient's brother the bedside that if ophthalmology is able to give a consult and advise Q the patient. Otherwise patient will need to see ophthalmology because of possible involvement of the eye. Otherwise patient appetite is fair. 06/05/2023: Dr. Jacobs from the ER called me yesterday evening. He was able to get in touch with Dr. York from ophthalmology. Patient to follow-up in the office on Friday. Continue current medication treatment plan. Also seen bedside test done negative. Transfer was canceled. ER physician started the patient on acyclovir and steroids. Today patient feels better. Periorbital swelling has gone down. Able tachycardia open his eye. Some conjunctival injection. Discomfort present. No pain. I spoke to patient over the phone. Jeff. Yi make an appointment with Dr. Karel York tomorrow. 06/06/2023: Redness lesions swelling right eye much better. No pain. No fever no chills. Stable for discharge. Completed a tapering dose of prednisone and 7 more days of acyclovir. Discussed with the patient. Patient to follow-up with food crops farm hand Dr. York. Social history: Resident of assisted living [facility]. Does use a walker and wheelchair. No history of smoking or alcohol. Physical examination: VITAL SIGNS: 98.1, 75, 16, 131/71, 94% room air GENERAL: laying in bed awake not in distress. EYES: area of redness on the right forehead extending down over the right eye. Periorbital edema.. Slight injection in the conjunctiva. Area of papules and some breakdown with crusting.: Crusting is gone down. Periorbital swelling has gone down. Able to open eye more. : Above symptoms much better HEENT: External appearance of nose and ears normal, oral cavity grossly normal. NECK: JVD not raised; masses not palpable. HEART: First and second heart sounds are normal; no edema. LUNGS: Respiratory rate normal; clear to auscultation. ABDOMEN: Soft, nontender, liver spleen not palpable, no masses palpable. PSYCH: Patient is able tonsil simple questions. State his name. Knows that is in the hospital.l. MUSCULOSKELETAL:No Clubbing/cyanosis;muscles-grossly intact. OA Assessment and plan: -Acute severe herpes zoster ophthalmicus and also including the possibility of even brunch. Patient has significant crusting. Unclear if the eyes involved. Complains of discomfort. No severe pain.: Improving IV acyclovir. Prednisone. Follow-up with Dr. Karel York food crops farm hand Acyclovir 800 mg 3 times a day for 7 days. Prednisone taper -Essential hypertension Amlodipine 5 mg. Losartan -BPH Doxazosin -Seizure history Dilantin -Hyperlipidemia Lipitor -Chronic gait dysfunction/medical debility. Uses a walker we will do baseline -Primary osteoarthritis Mobic when necessary. -Anxiety Trazodone -Moderate to severe cognitive impairment. Dementia. -Full code Disposition: Home Past Medical History Past Medical History: Hyperlipidemia, Hypertension, Prostate Disorder, Seizure Disorder Additional Past Medical History / Comment(s): LAST SEIZURE AT AGE 16 History of Any Multi-Drug Resistant Organisms: None Reported Past Surgical History: Hernia Repair, Tonsillectomy Additional Past Surgical History / Comment(s): JUNIOR FUNDLOPLASTY-2013. EGD. COLONOSCOPY. REPAIR INDEX FINGER RT HAND Past Anesthesia/Blood Transfusion Reactions: No Reported Reaction Past Psychological History: Anxiety Smoking Status: Never smoker Past Alcohol Use History: None Reported Past Drug Use History: None Reported Plan - Discharge Summary Discharge Rx Participant: No New Discharge Prescriptions: New predniSONE 10 mg PO DAILY #30 tab Continue Phenytoin Sodium Extended [Dilantin] 100 mg PO TID Doxazosin Mesylate 8 mg PO HS Losartan Potassium 100 mg PO HS amLODIPine [Norvasc] 5 mg PO HS #0 Acetaminophen Tab [Tylenol] 650 mg PO Q4H PRN #30 tablet PRN Reason: Pain Menthol [Biofreeze] 1 applic TOPICAL DAILY PRN PRN Reason: right thigh pain guaiFENesin [guaiFENesin Oral Solution] 100 mg PO Q4H PRN PRN Reason: Cough Loperamide [Imodium] 2 - 4 mg PO QID PRN PRN Reason: Diarrhea traZODone HCL [Desyrel] 50 mg PO HS Psyllium Husk (with Sugar) [Metamucil Powder] 6 gm PO DAILY Lactase [Lactaid] 3,000 unit PO AC-TID Ergocalciferol [Vitamin D2 (1250 Mcg = 07874 Iu)] 1,250 mcg PO TU Albuterol Sulfate [Accuneb] 0.63 ml INHALATION RT-Q4H PRN PRN Reason: Shortness Of Breath Furosemide [Lasix] 40 mg PO DAILY Atorvastatin [Lipitor] 20 mg PO HS Meloxicam [Mobic] 15 mg PO DAILY PRN PRN Reason: Pain Discontinued Nystatin 100,000 Unit/gm Powd [Mycostatin Powder] 1 applic TOPICAL BID PRN PRN Reason: Rash Mupirocin 2% Oint [Bactroban 2% Oint] 1 applic TOPICAL BID Amoxic-Pot Clav 875-125Mg [Augmentin 875-125] 1 tab PO BID Discharge Medication List Doxazosin Mesylate 8 mg PO HS 01/28/17 [History] Losartan Potassium 100 mg PO HS 01/28/17 [History] Phenytoin Sodium Extended [Dilantin] 100 mg PO TID 01/28/17 [History] Acetaminophen Tab [Tylenol] 650 mg PO Q4H PRN #30 tablet 07/04/18 [Rx] amLODIPine [Norvasc] 5 mg PO HS #0 07/04/18 [Rx] Albuterol Sulfate [Accuneb] 0.63 ml INHALATION RT-Q4H PRN 06/04/23 [History] Atorvastatin [Lipitor] 20 mg PO HS 06/04/23 [History] Ergocalciferol [Vitamin D2 (1250 Mcg = 59658 Iu)] 1,250 mcg PO TU 06/04/23 [History] Furosemide [Lasix] 40 mg PO DAILY 06/04/23 [History] Lactase [Lactaid] 3,000 unit PO AC-TID 06/04/23 [History] Loperamide [Imodium] 2 - 4 mg PO QID PRN 06/04/23 [History] Meloxicam [Mobic] 15 mg PO DAILY PRN 06/04/23 [History] Menthol [Biofreeze] 1 applic TOPICAL DAILY PRN 06/04/23 [History] Psyllium Husk (with Sugar) [Metamucil Powder] 6 gm PO DAILY 06/04/23 [History] guaiFENesin [guaiFENesin Oral Solution] 100 mg PO Q4H PRN 06/04/23 [History] traZODone HCL [Desyrel] 50 mg PO HS 06/04/23 [History] predniSONE 10 mg PO DAILY #30 tab 06/06/23 [Rx] Follow up Appointment(s)/Referral(s): Brandon Harper DO [Primary Care Provider] - 1-2 days [facility], [NON-STAFF] - As Needed Karel York DO [Doctor of Osteopathic Medicine] - 06/06/23 Patient Instructions/Handouts: Edwardo ([email or web address])
[2023-06-10] MEDS ORDERED: ERGOCALCIFEROL 1,250 MCG (50,000 IU) CAPSULE PO SCH (08:32)
== END 2023-06-06 13:27 | disposition home health service (06) | DRG 125 ==
LOC: EC 12:51 → 4SSUR 18:42 → OBSVTOIN 06-05 11:28 → 4SSUR 06-05 11:50 → 1SOBS 06-05 14:41
PROVIDERS: ADMIT Hospitalist; ATTEND Hospitalist
DX: B02.30 Zoster ocular disease, unspecified (principal); F03.94 Unspecified dementia, unspecified severity, with anxiety; E78.5 Hyperlipidemia, unspecified; F41.9 Anxiety disorder, unspecified; R21 Rash and other nonspecific skin eruption; G40.909 Epilepsy, unspecified, not intractable, without status epilepticus; G80.9 Cerebral palsy, unspecified; M19.91 Primary osteoarthritis, unspecified site; I10 Essential (primary) hypertension; N40.0 Benign prostatic hyperplasia without lower urinary tract symptoms; Z79.1 Long term (current) use of non-steroidal anti-inflammatories (NSAID); Z79.899 Other long term (current) drug therapy; Z88.1 Allergy status to other antibiotic agents
CPT/HCPCS: 80053; 85025; 96372; 96374; 96375; 99285

== ENCOUNTER → 2023-11-21 | Outpatient (CLI) | payer OTHER ==
--- NOTE | 2023-11-21 17:37 | CA ---
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 18 - 58 / 22 - 52 cm??? LA Volume Index 16.1 cm???/m??? 16 - 28 cm???/m??? M-MODE Aortic Root Diameter MM 3.4 cm DOPPLER AV Peak Velocity 168.0 cm/s AV Peak Gradient 11.3 mmHg AV Mean Velocity 109.0 cm/s AV Mean Gradient 6.0 mmHg AV Velocity Time Integral 33.9 cm AI Peak Velocity 433.0 cm/s AI Peak Gradient 75.0 mmHg AI Pressure Half Time 488.0 ms Mitral E Point Velocity 66.6 cm/s Mitral A Point Velocity 100.0 cm/s Mitral E to A Ratio 0.7 MV Deceleration Time 246.0 ms FINDINGS Left Ventricle Left ventricular ejection fraction is estimated at 55-60 %. Left ventricular cavity size normal. Left ventricular wall thickness normal. No obvious regional wall motion abnormalities. Global longitudinal strain estimated at -16.9% Right Ventricle Mild right ventricular dilatation. Unable to estimate the right ventricular systolic pressure. Right Atrium Normal right atrial size. No right atrial thrombus or mass seen. Left Atrium No left atrial thrombus or mass present. Mitral Valve Structurally normal mitral valve. Trace mitral regurgitation. Aortic Valve Trileaflet aortic valve. Mild aortic regurgitation. Tricuspid Valve Structurally normal tricuspid valve. No tricuspid stenosis, regurgitation or prolapse. Pulmonic Valve Structurally normal pulmonic valve. Mild pulmonic regurgitation. Pericardium No pericardial or pleural effusion. epicardial fat Aorta Normal size aortic root and proximal ascending aorta. CONCLUSIONS Left ventricular ejection fraction is estimated at 55-60 %. Mild concentric LVH. Normal LV cavity size. No obvious regional wall motion abnormalities. GLS is mildly reduced at -16.9% Mild be dilatation. No significant valvular dysfunction Epicardial fat Previewed by: Dr Erik Stewart (Electronically Signed) Final Date: 21 November 2023 17:36
== END | disposition home or self-care (01) ==
LOC: RADECHMAIN 10:59
PROVIDERS: ATTEND Internal Medicine Hospice and Palliative Medicine
DX: I35.1 Nonrheumatic aortic (valve) insufficiency (principal)
CPT/HCPCS: 93306